=== PATIENT | male | born 1955 | race Caucasian/White ===

== ENCOUNTER → 2018-01-10 14:27 | Outpatient (CLI) | payer BC, SELFPAY ==
[2018-01-10 15:23] LABS: Alanine Aminotransferase 27 IU/L (21-72); Albumin 4.7 g/dL (3.5-5.0); Albumin Globulin Ratio 1.4 (1.0-2.8); Alkaline Phosphatase 72 U/L (38-126); Aspartate Aminotransferase 30 IU/L (17-59); Bilirubin Total 0.4 mg/dL (0.2-1.3); Blood Urea Nitrogen 12 mg/dL (9-20); Calcium 9.5 mg/dL (8.4-10.2); Carbon Dioxide 26 mmol/L (22-32); Chloride 107 mmol/L (98-107); Cholesterol 166 mg/dL (140-199); Estimated Glomerular Filt Rate > 60.0 mL/min (>60); Globulin 3.3 g/dL (1.7-4.1); Glucose 117 mg/dL (80-110); HDL Cholesterol 44 mg/dL (40-60); HEMOLYSIS < 15 (0-50); LDL Cholesterol Calculated 82 mg/dL (<100); Potassium 4.2 mmol/L (3.4-5.1); Sodium 146 mmol/L (137-145); Triglycerides 199 mg/dL (35-150); Uric Acid 7.7 mg/dL (3.5-8.5)
[2018-01-10 15:35] LABS: Vitamin D 25 Hydroxy (D3) 16.8 ng/mL (30.0-100.0)
== END ==
PROVIDERS: Family Provider Family Medicine; PCP Family Medicine; Visit Provider Student in an Organized Health Care Education/Training Program
DX: E78.00 Pure hypercholesterolemia, unspecified (principal); I10 Essential (primary) hypertension; M10.9 Gout, unspecified; Z79.899 Other long term (current) drug therapy; E55.9 Vitamin D deficiency, unspecified
CPT/HCPCS: 36415; 80053; 80061; 82306; 84550

== ENCOUNTER → 2019-01-09 09:27 | Outpatient (CLI) | payer BC, SELFPAY ==
[2019-01-09 10:20] LABS: HEMOLYSIS < 15 (0-50)
[2019-01-09 10:26] LABS: BUN Creatinine Ratio 16.7 (6-22); Blood Urea Nitrogen 15 mg/dL (9-20); Calcium 10.1 mg/dL (8.4-10.2); Carbon Dioxide 29 mmol/L (22-32); Chloride 102 mmol/L (98-107); Cholesterol 209 mg/dL (140-199); Estimated Glomerular Filt Rate > 60.0 mL/min (>60); Glucose 140 mg/dL (80-110); HDL Cholesterol 43 mg/dL (40-60); LDL Cholesterol Calculated 109 mg/dL (<100); Potassium 4.2 mmol/L (3.4-5.1); Sodium 142 mmol/L (137-145); Triglycerides 284 mg/dL (35-150); Uric Acid 7.8 mg/dL (3.5-8.5)
[2019-01-09 10:34] LABS: Vitamin D 25 Hydroxy (D3) 41.7 ng/mL (30.0-100.0)
[2019-01-09 14:09] LABS: Prostate Specific Antigen Scrn 3.98 ng/mL (0.1-4.0)
== END ==
PROVIDERS: PCP Student in an Organized Health Care Education/Training Program; Visit Provider Student in an Organized Health Care Education/Training Program
DX: Z12.5 Encounter for screening for malignant neoplasm of prostate (principal); Z71.1 Person with feared health complaint in whom no diagnosis is made; M10.9 Gout, unspecified; E55.9 Vitamin D deficiency, unspecified; I10 Essential (primary) hypertension; E78.00 Pure hypercholesterolemia, unspecified
CPT/HCPCS: 36415; 80048; 80061; 82306; 84550; 86900; 86901; G0103

== ENCOUNTER → 2019-07-31 08:19 | Outpatient (CLI) | payer BC, SELFPAY ==
--- NOTE | 2019-07-31 08:20 | DI.MG.S_ITS ---
MALE BILATERAL DIGITAL DIAGNOSTIC MAMMOGRAM 3D/2D: 07/31/2019 CLINICAL: Left breast pain. No prior exams were available for comparison. There is a flame-shaped irregular low density asymmetry with indistinct margins in the left breast central to the nipple anterior depth. This correlates to the area of reported pain. No other significant masses, calcifications, or other findings are seen in either breast. IMPRESSION: There is no mammographic evidence of malignancy. Flame shaped retroareolar asymmetry is consistent with gynecomastia. Recommend clinical follow-up for possible etiologies and to demonstrate resolution of clinical symptoms. This exam was interpreted at Station ID: [id number]. NOTE: For mammograms, a report in lay terms will be sent to the patient. Approximately 15% of breast malignancies will not be visualized mammographically. In the management of a palpable breast mass, a negative mammogram must not discourage biopsy of a clinically suspicious lesion. Electronically Signed By: Ramakrishna Sy M.D. ddjenise/:07/31/2019 08:58:03 letter sent: Clinical Evaluation ACR BI-RADS Category 2: Benign Finding(s) 3342F
== END ==
PROVIDERS: PCP Student in an Organized Health Care Education/Training Program; Referring Provider Student in an Organized Health Care Education/Training Program; Visit Provider Student in an Organized Health Care Education/Training Program
DX: N64.4 Mastodynia (principal); N62 Hypertrophy of breast
CPT/HCPCS: 77066; G0279

== ENCOUNTER → 2019-08-07 08:34 | Outpatient (CLI) | payer BC, SELFPAY ==
[2019-08-07 10:01] LABS: HCG Quantitative /Beta subunit < 2.4 mIU/mL (-2.40)
[2019-08-07 10:17] LABS: Testosterone 123 ng/dL (71.8-623)
[2019-08-07 10:34] LABS: Estradiol, Total 25.1 pg/mL
== END ==
PROVIDERS: PCP Student in an Organized Health Care Education/Training Program; Referring Provider Student in an Organized Health Care Education/Training Program; Visit Provider Student in an Organized Health Care Education/Training Program
DX: N64.4 Mastodynia (principal)
CPT/HCPCS: 36415; 82670; 83001; 83002; 84403; 84702

== ENCOUNTER → 2019-12-03 07:01 | Outpatient (CLI) | payer BC, SELFPAY ==
[2019-12-03 10:13] LABS: Testosterone 80.9 ng/dL (71.8-623)
== END ==
PROVIDERS: PCP Student in an Organized Health Care Education/Training Program; Referring Provider Student in an Organized Health Care Education/Training Program; Visit Provider Student in an Organized Health Care Education/Training Program
DX: E29.1 Testicular hypofunction (principal)
CPT/HCPCS: 36415; 84403

== ENCOUNTER → 2020-02-02 06:55 | Outpatient (CLI) | payer BC, SELFPAY ==
[2020-02-02 08:28] LABS: Hematocrit 41.5 % (41-53); Hemoglobin 14.1 g/dL (13.5-17.5)
[2020-02-02 08:52] LABS: Prostate Specific Antigen Scrn 4.73 ng/mL (0.1-4.0)
[2020-02-02 08:54] LABS: Testosterone 117 ng/dL (71.8-623)
== END ==
PROVIDERS: PCP Student in an Organized Health Care Education/Training Program; Referring Provider Student in an Organized Health Care Education/Training Program; Visit Provider Student in an Organized Health Care Education/Training Program
DX: E29.1 Testicular hypofunction (principal); Z12.5 Encounter for screening for malignant neoplasm of prostate; Z79.899 Other long term (current) drug therapy
CPT/HCPCS: 36415; 84403; 85014; 85018; G0103

== ENCOUNTER → 2020-03-16 06:50 | Outpatient (CLI) | payer BC, SELFPAY ==
[2020-03-16 08:39] LABS: Prostate Specific Antigen 4.95 ng/mL (0.10-4.00)
== END ==
PROVIDERS: PCP Student in an Organized Health Care Education/Training Program; Referring Provider Student in an Organized Health Care Education/Training Program; Visit Provider Student in an Organized Health Care Education/Training Program
DX: R97.20 Elevated prostate specific antigen [PSA] (principal)
CPT/HCPCS: 36415; 84153

== ENCOUNTER → 2020-05-27 12:18 | Outpatient (CLI) | payer BC, SELFPAY ==
[2020-05-27] MEDS: COVID-19 VACC #1, MRNA(MOD) 100 MCG/0.5 ML VIAL IM (12:26)
== END ==
PROVIDERS: PCP Student in an Organized Health Care Education/Training Program; Visit Provider Internal Medicine
DX: Z23 Encounter for immunization (principal)
CPT/HCPCS: 0011A; 91301

== ENCOUNTER → 2020-06-24 12:14 | Outpatient (CLI) | payer BC, SELFPAY ==
[2020-06-24] MEDS: COVID-19 VACC #2, MRNA(MOD) 100 MCG/0.5 ML VIAL IM (12:25)
== END ==
PROVIDERS: PCP Student in an Organized Health Care Education/Training Program; Visit Provider Internal Medicine
DX: Z23 Encounter for immunization (principal)
CPT/HCPCS: 0012A; 91301

== ENCOUNTER 2020-06-29 18:19 | Emergency (ER) | payer BC, SELFPAY ==
[2020-06-29 18:28] VITALS: BP 221/110; PULSE 117; RESP 16; TEMP 36.4; O2SAT 96; BMI 34.9
--- NOTE | 2020-06-29 18:31 | DI.RAD.S_ITS ---
PROCEDURE: XR ANKLE RT MIN 3V INDICATIONS: missed last two steps on ladder right ankle pain TECHNIQUE: 3 views of the ankle were acquired. COMPARISON: None. FINDINGS: Bones: No definite fracture. Large posterior calcaneal spur. Diffuse hindfoot spurring and sclerosis. Soft tissues: Severe circumferential ankle edema IMPRESSION: No fracture identified. If the patient's pain or other symptoms persist, consider further evaluation with MRI. Severe circumferential soft tissue swelling. Dictated by: Anshul Johnson M.D. on 06/29/2020 at 19:29 Approved by: Anshul Johnson M.D. on 06/29/2020 at 19:30
--- NOTE | 2020-06-29 20:11 | ED_ITS ---
HPI - Extremity Injury (Lower) General Chief Complaint: Extremity Injury, Lower Stated Complaint: right side lower leg injury, thinks broken Time Seen by Provider: 06/29/20 19:58 Source: patient and family Mode of arrival: Ambulatory History of Present Illness HPI Narrative: Patient here with . drove. Complains of right ankle injury at 5:00 p.m. today. Missed the last step going down on his ladder. Complains only of the right ankle. No other injury. No previous injury or surgery to this ankle. No numbness tingling or weakness. Did have 1 alcohol beverage today at noon. Blood pressure noted. No history of hypertension. However patient states he gets very anxious nervous seeing doctors or medical office. Denies any chest pain headache numbness tingling or weakness. Related Data Home Medications Medication Instructions Recorded Confirmed cholecalciferol (vitamin D3) 250 500 mcg PO DAILY cap 05/16/20 06/29/20 mcg (10,000 unit) capsule fluticasone 100 mcg-salmeterol 50 1 inh INHALATION BID 05/16/20 06/29/20 mcg/dose blistr powdr for inhalation melatonin 5 mg capsule mg PO 05/16/20 06/29/20 Previous Rx's Medication Instructions Recorded albuterol sulfate 90 mcg/actuation 1 puff INHALATION BID PRN #8.5 gram 11/11/19 aerosol inhaler atorvastatin 20 mg tablet 20 mg PO BEDTIME #90 tab 01/06/20 safety needles 18 gauge x 1 #6 each 01/15/20 syringe with needle, safety 3 mL #6 each 01/15/20 22 gauge x 1 1/2 testosterone cypionate 100 mg/mL 100 mg IM Q3W #1 ml 01/15/20 intramuscular oil colchicine 0.6 mg tablet 0.6 mg PO DAILY PRN #7 tab 02/12/20 Allergies Allergy/AdvReac Type Severity Reaction Status Date / Time No Known Drug Allergies Allergy Verified 06/29/20 18:30 Review of Systems Review of Systems Narrative: GENERAL: Denies chills, fatigue, malaise, fever, sweats. HEENT: Denies sinus pain, ear pain, sore throat RESPIRATORY: Denies dyspnea, cough CARDIOVASCULAR: Denies chest pain, palpitations GASTROINTESTINAL: Denies nausea, vomiting, abdominal pain : Denies dysuria, frequency, hematuria MUSCULOSKELETAL: Complains muscle or bony pain SKIN: Denies rash, skin lesions NEUROLOGIC: Denies weakness, numbness ROS Unobtainable: All systems reviewed & are unremarkable except as noted in HPI and below Patient History Medical History Ankle pain (2009) Asthma Breast pain in male Chicken pox (1961) Diverticular disease Foot pain (2012) Hayfever (1961) Nodular prostate [place] fever (1977) Shoulder pain (1998) Surgical History Anesthesia History of circumcision History of umbilical hernia repair (1994) Family History Brother No problems noted. Brother Heart attack Heart disease CAD (coronary artery disease) Brother Gout Brother Down's syndrome Father No problems noted. Mother Heart disease Diabetes mellitus Grandmother Heart attack Pancreatitis Sister No problems noted. Grandmother Pancreatic cancer Social History marital status: occupational status: employed Smoking Status: Never smoker alcohol intake: current (1 beer/month) substance use type: does not use caffeine: Yes Smoking Status: Never smoker alcohol intake frequency: holidays/special occasions only Substance Use Type: does not use Exam Narrative Exam Narrative: GENERAL: in no distress, not toxic not dyspneic HEAD: Normocephalic. EYES: Pupils equal round CARDIOVASCULAR: Regular rate and rhythm without murmurs RESPIRATORY: Clear to auscultation. Breath sounds equal bilaterally. No wheezes, rales, or rhonchi. EXTREMITIES: Examination right lower extremity ankle and foot exposed. Foot is warm soft and pink with diffuse circumferential edema of the ankle. Strong pedal pulse. Light touch intact to foot and toes. Wiggles toes. Nontender kne e and hip. Limited range of motion at the ankle due to pain and swelling. NEURO: AOx4. SKIN: Warm and dry PSYCH: Not anxious, is cooperative Initial Vital Signs Initial Vital Signs: Vital Signs Temperature 97.5 F L 06/29/20 18:28 Pulse Rate 117 H 06/29/20 18:28 Respiratory Rate 16 06/29/20 18:28 Blood Pressure 221/110 H 06/29/20 18:28 Pulse Oximetry 96 06/29/20 18:28 Procedures Orthopedic Splinting/Casting Injury #1: Side: right Lower Extremity Injury Location: ankle Lower Extremity Immobilizer: AirCast Other Orthopedic Equipment: crutches Post splinting neuro exam: intact Post splinting vascular exam: intact Placed by: Nursing Additional Comments: Patient tolerated splinting very well. Neurovascular intact. Course Course Course Narrative: No new issues during course of stay. Orders Ordered: ED Orders 06/29/20 18:31 XR ankle RT min 3V Stat Reevaluation(s) Reevaluation #1: Patient agrees with treatment plan and follow-up with orthopedics for the ankle injury as well as family doctor for his blood pressure He states this is due to anxiety. Time: 20:18 Vital Signs Vital signs: Vital Signs - 8 hr 06/29/20 18:28 Temperature 97.5 F L Pulse Rate 117 H Respiratory Rate 16 Blood Pressure 221/110 H Pulse Oximetry 96 MDM - Extremity Injury (Lower) Differential Diagnosis Differential diagnosis: Likely ankle sprain and strain and ankle fracture Imaging Data Extremity x-ray #1: Radiologist's Impression: [address] [id number] ReportSigned Patient: Artis Davis BMR#: [id number]: [id number]:[id number]/Sex: 64 / MDate of Service: 06/29/20Loc: EDAccession Number: [id number] Procedure: XR ankle RT min 3V Ordering Provider: Artis Valenzuela MD PROCEDURE: XR ANKLE RT MIN 3V INDICATIONS: missed last two steps on ladder right ankle pain TECHNIQUE: 3 views of the ankle were acquired. COMPARISON: None. FINDINGS: Bones: No definite fracture. Large posterior calcaneal spur. Diffuse hindfoot spurring and sclerosis. Soft tissues: Severe circumferential ankle edema IMPRESSION: No fracture identified. If the patient's pain or other symptoms persist, consider further evaluation with MRI. Severe circumferential soft tissue swelling. Dictated by: Anshul Johnson M.D. on 06/29/2020 at 19:29 Approved by: Anshul Johnson M.D. on 06/29/2020 at 19:30 [facility] Narrative Medical decision making narrative: Appropriate for discharge home. Instructions given to patient. Also for blood pressure remeasured with family doctor. He does have a family doctor. He does not have a history of high blood pressure. He states this is due to pain and anxiety. Return precautions given. May need MRI or repeat x-ray if not improving 7 or 10 days of the right ankle pain and swelling. He understands no driving as well. Discharge Plan Departure Patient Disposition: Home Clinical Impression: Sprain of ankle, right Qualifiers: Encounter type: initial encounter Involved ligament of ankle: unspecified ligament Qualified Code(s): S93.401A - Sprain of unspecified ligament of right ankle, initial encounter Instructions: DI for Ankle Sprain Activity Restrictions/Additional Instructions: No driving or operating machinery until cleared by Orthopedics. Use crutches and ankle splint until office time. May use [id number]-[id number] ibuprofen for pain. Ice and elevate ankle 20 minutes at a time as needed for pain and swellin g. Return if worse if any questions or concerns. Prescriptions: No Action albuterol sulfate [Ventolin HFA] 90 mcg/actuation HFA aerosol inhaler 1 puff INHALATION BID PRN (Reason: shortness of breath or wheezing) Qty: 8.5 RF: 5 atorvastatin 20 mg tablet 20 mg PO BEDTIME Qty: 90 RF: 2 colchicine 0.6 mg tablet 0.6 mg PO DAILY PRN (Reason: gout) Qty: 7 RF: 5 fluticasone propion-salmeterol [Wixela Inhub] 100-50 mcg/dose blister with de vice 1 inh inhalation BID RF: 0 cholecalciferol (vitamin D3) 250 mcg (10,000 unit) capsule 500 mcg PO DAILY RF: 0 melatonin 5 mg capsule PO RF: 0 (DME) Monoject Safety Syringes 3 mL 22 gauge x 1 1/2 syringe See Rx Instructions .ROUTE .MEDSUPPLY Qty: 6 RF: 11 (DME) safety needles 18 gauge x 1 needle See Rx Instructions .ROUTE .MEDSUPPLY Qty: 6 RF: 11 testosterone cypionate [Depo-Testosterone] 100 mg/mL oil 100 mg IM Q3W Qty: 1 RF: 5 Hold Instructions: Needs f/u labs after 11/06/19 Referrals: Chris Garcia MD [Primary Care Provider] - Ankit Potter MD [Physician] -
[2020-06-29] MEDS: HYDROCODONE/ACET 5/325 TABLET 2 TAB PO (20:16)
[2020-06-29] MEDS: ONDANSETRON 4 MG ODT SL (20:16)
[2020-06-29 20:20] VITALS: BP 196/96; RESP 12
[2020-06-29 20:54] VITALS: BP 172/88; PULSE 93; RESP 20; O2SAT 99
== END 2020-06-29 20:54 | disposition home or self-care (01) ==
PROVIDERS: Emergency Provider Emergency Medicine; PCP Student in an Organized Health Care Education/Training Program
DX: S93.401A Sprain of unspecified ligament of right ankle, initial encounter (principal); X58.XXXA Exposure to other specified factors, initial encounter
CPT/HCPCS: 73610; 99283; 99284

== ENCOUNTER 2020-08-18 06:23 | Emergency (ER) | payer BC, SELFPAY ==
[2020-08-18] VITALS (15 sets, daily range): BP systolic 129–221; BP diastolic 58–117; PULSE 76–102; RESP 15–38; TEMP 37.5; O2SAT 92–97
--- NOTE | 2020-08-18 06:48 | ED.GENADULT ---
HPI - General Adult <Halima Chatterjee MD - Last Filed: 08/19/20 05:20> General Chief complaint: Neuro Symptoms/Deficit Stated complaint: POSSIBLE STROKE Time Seen by Provider: 08/18/20 06:38 History of Present Illness HPI narrative: S 64-year-old gentleman with a history of asthma, hyperlipidemia slightly elevated blood pressure and he has been recently monitoring blood pressures to decide if medications are going to be required presents with 4 days of labile blood pressure with numbers as elevated as 220/120 with mild tachycardia, typically in the 90s sinus rhythm (he notes his usual is the low 80s) he has been having dizziness and vertigo when the blood pressures are elevated and worse when he is standing up. The dizziness isn't quite as pronounced when he is laying down. He does not describe chest pain or exertional dyspnea. His notes that he has been a bit cognitively fuzzy over the last 4 days but no obvious dysarthria or word-finding difficulties. He has a right boot in place after suffering a heel fracture at the end of June. He does not note calf tenderness or swelling of the right side Related Data Home Medications Medication Instructions Recorded Confirmed cholecalciferol (vitamin D3) 250 500 mcg PO DAILY cap 05/16/20 06/29/20 mcg (10,000 unit) capsule fluticasone 100 mcg-salmeterol 50 1 inh INHALATION BID 05/16/20 06/29/20 mcg/dose blistr powdr for inhalation melatonin 5 mg capsule mg PO 05/16/20 06/29/20 Previous Rx's Medication Instructions Recorded albuterol sulfate 90 mcg/actuation 1 puff INHALATION BID PRN #8.5 gram 11/11/19 aerosol inhaler atorvastatin 20 mg tablet 20 mg PO BEDTIME #90 tab 01/06/20 colchicine 0.6 mg tablet 0.6 mg PO DAILY PRN #7 tab 02/12/20 meclizine 25 mg PO TID PRN #10 tab 08/18/20 Allergies Allergy/AdvReac Type Severity Reaction Status Date / Time No Known Drug Allergies Allergy Verified 06/29/20 18:30 Review of Systems <Halima Chatterjee MD - Last Filed: 08/19/20 05:20> Review of Systems Narrative: Remainder of complete review of systems is otherwise unremarkable except for that included in the HPI. Patient History <Halima Chatterjee MD - Last Filed: 08/19/20 05:20> Medical History Ankle pain (2009) Asthma Breast pain in male Chicken pox (1961) Diverticular disease Foot pain (2012) Hayfever (1961) Nodular prostate [place] fever (1977) Shoulder pain (1998) Surgical History Anesthesia History of circumcision History of umbilical hernia repair (1994) Family History Brother No problems noted. Brother Heart attack Heart disease CAD (coronary artery disease) Brother Gout Brother Down's syndrome Father No problems noted. Mother Heart disease Diabetes mellitus Grandmother Heart attack Pancreatitis Sister No problems noted. Grandmother Pancreatic cancer Social History marital status: occupational status: employed Smoking Status: Never smoker alcohol intake: current (1 beer/month) substance use type: does not use caffeine: Yes Smoking Status: Never smoker alcohol intake frequency: holidays/special occasions only Substance Use Type: does not use Exam <Halima Chatterjee MD - Last Filed: 08/19/20 05:20> Narrative Exam Narrative: General: Healthy appearing, in no acute distress. Able to give a complete and coherent history. Well-nourished well-developed HEENT: Moist mucous membranes, normal sclera with reactive pupils, Neck: No JVD, supple Respiratory: Lungs are clear to auscultation, no wheezing no rales no rhonchi. Full and symmetrical air movement Cardiac: Regular rate and rhythm. 3/6 murmur heard best at the apex radiating up to the precordium. Abdomen: Soft, nontender, good bowel tones, no flank pain Skin: Warm and dry, no rashes Neurologic: Grossly neurologically intact with no obvious asymmetries or abnormalities Extremities: No trauma, well perfused Psych: Cooperative, appropriate insight and affect Initial Vital Signs Initial Vital Signs: Vital Signs Pulse Rate 97 H 08/18/20 06:41 Respiratory Rate 33 H 08/18/20 06:41 Pulse Oximetry 94 08/18/20 06:41 <Angie Beltrán DO - Last Filed: 08/18/20 19:10> Initial Vital Signs Initial Vital Signs: Vital Signs Pulse Rate 97 H 08/18/20 06:41 Respiratory Rate 33 H 08/18/20 06:41 Pulse Oximetry 94 08/18/20 06:41 <Angie Beltrán DO - Last Filed: 08/18/20 19:10> NIH Stroke Scale Level of Conciousness: Alert, keenly responsive Ask month/age: Answers both questions correctly. Open/close eyes, close hand: Performs both tasks correctly Best gaze horizontal: Normal Visual hubbard: No visual loss Facial palsy: Normal symetrical movement Left arm drift: No drift for full 10 sec Right arm drift: No drift for full 10 sec Left leg drift: No drift for full 5 sec Right leg drift: No drift for full 5 sec Limb ataxia: Absent Sensory on face/arms/legs: Normal, no sensory loss Best language: No aphasia, normal Dysarthria: Normal Extinction or inattention: No abnormality Total NIH Stroke scale score: 0 Course <Halima Chatterjee MD - Last Filed: 08/19/20 05:20> Orders Ordered: Discontinued Medications Labetalol HCl (Labetalol 20 Mg/4 Ml Syringe) 20 mg IV NOW ONE Stop: 08/18/20 07:05 Last Admin: 08/18/20 07:22 Dose: 20 mg Documented by: MARIO Meclizine HCl (Meclizine Hcl 12.5 Mg Tablet) 25 mg PO NOW ONE Stop: 08/18/20 08:29 Last Admin: 08/18/20 08:46 Dose: 25 mg Documented by: TACO Vital Signs Vital signs: Vital Signs - 8 hr 08/18/20 06:50 Temperature 99.5 F Pulse Rate 102 H Respiratory Rate 18 Blood Pressure 221/117 H Pulse Oximetry 97 <Angie Beltrán DO - Last Filed: 08/18/20 19:10> Orders Ordered: Discontinued Medications Labetalol HCl (Labetalol 20 Mg/4 Ml Syringe) 20 mg IV NOW ONE Stop: 08/18/20 07:05 Last Admin: 08/18/20 07:22 Dose: 20 mg Documented by: MARIO Meclizine HCl (Meclizine Hcl 12.5 Mg Tablet) 25 mg PO NOW ONE Stop: 08/18/20 08:29 Last Admin: 08/18/20 08:46 Dose: 25 mg Documented by: TACO Vital Signs Vital signs: Vital Signs - 8 hr 08/18/20 06:50 Temperature 99.5 F Pulse Rate 102 H Respiratory Rate 18 Blood Pressure 221/117 H Pulse Oximetry 97 Medical Decision Making <Halima Chatterjee MD - Last Filed: 08/19/20 05:20> Medical Records Medical records reviewed: Yes I reviewed the patient's medical records. Lab Data Lab results reviewed: Yes I reviewed the patient's lab results. Result diagrams: 08/18/20 06:45 08/18/20 06:45 Labs: Lab Results 08/18/20 08/18/20 08/18/20 Range/Units 06:45 06:45 07:00 WBC 10.8 (4.5-11.0) X10^3/uL RBC 4.56 (4.5-5.9) X10^6/uL Hgb 13.9 (13.5-17.5) g/dL Hct 41.0 (41-53) % MCV 89.8 (80-100) fL MCH 30.5 (26-34) PG MCHC 33.9 (30-36) % RDW 12.9 (11.6-14.8) % Plt Count 312 (150-400) X10^3/uL Neut % (Auto) 67.0 (50-75) % Lymph % (Auto) 19.0 L (25-40) % [place] % (Auto) 8.1 (3-14) % Eos % (Auto) 4.8 H (2-4) % Baso % (Auto) 1.1 (0-2) % Neut # (Auto) 7200 H (0743-3778) /uL Lymph # (Auto) 2000 (5766-8833) /uL [place] # (Auto) 900 (0-900) /uL Eos # (Auto) 500 H (0-450) /uL Baso # (Auto) 100 (0-100) /uL D-Dimer 281 H (<230) ng/mL Sodium 142 (137-145) mmol/L Potassium 3.6 (3.4-5.1) mmol/L Chloride 107 (98-107) mmol/L Carbon Dioxide 26 (22-32) mmol/L BUN 14 (9-20) mg/dL Creatinine 0.76 (0.66-1.25) mg/dL Estimated GFR > 60.0 (>60) mL/min BUN/Creatinine Ratio 18.4 (6-22) Glucose 137 H (80-110) mg/dL Calcium 9.9 (8.4-10.2) mg/dL Magnesium 1.8 (1.6-2.3) mg/dL Total Bilirubin 0.7 (0.2-1.3) mg/dL AST 30 (17-59) IU/L ALT 22 (<50) IU/L Alkaline Phosphatase 75 (38-126) U/L Troponin I < 0.012 (0.01-0.034) ng/mL Total Protein 7.9 (6.3-8.2) g/dL Albumin 4.3 (3.5-5.0) g/dL Globulin 3.6 (1.7-4.1) g/dL Albumin/Globulin Ratio 1.2 (1.0-2.8) <Angie Beltrán, - Last Filed: 08/18/20 19:10> Lab Data Lab results reviewed: Yes I reviewed the patient's lab results. Labs: Lab Results 08/18/20 08/18/20 08/18/20 Range/Units 06:45 06:45 07:00 WBC 10.8 (4.5-11.0) X10^3/uL RBC 4.56 (4.5-5.9) X10^6/uL Hgb 13.9 (13.5-17.5) g/dL Hct 41.0 (41-53) % MCV 89.8 (80-100) fL MCH 30.5 (26-34) PG MCHC 33.9 (30-36) % RDW 12.9 (11.6-14.8) % Plt Count 312 (150-400) X10^3/uL Neut % (Auto) 67.0 (50-75) % Lymph % (Auto) 19.0 L (25-40) % [place] % (Auto) 8.1 (3-14) % Eos % (Auto) 4.8 H (2-4) % Baso % (Auto) 1.1 (0-2) % Neut # (Auto) 7200 H (9035-1753) /uL Lymph # (Auto) 2000 (9092-6063) /uL [place] # (Auto) 900 (0-900) /uL Eos # (Auto) 500 H (0-450) /uL Baso # (Auto) 100 (0-100) /uL D-Dimer 281 H (<230) ng/mL Sodium 142 (137-145) mmol/L Potassium 3.6 (3.4-5.1) mmol/L Chloride 107 (98-107) mmol/L Carbon Dioxide 26 (22-32) mmol/L BUN 14 (9-20) mg/dL Creatinine 0.76 (0.66-1.25) mg/dL Estimated GFR > 60.0 (>60) mL/min BUN/Creatinine Ratio 18.4 (6-22) Glucose 137 H (80-110) mg/dL Calcium 9.9 (8.4-10.2) mg/dL Magnesium 1.8 (1.6-2.3) mg/dL Total Bilirubin 0.7 (0.2-1.3) mg/dL AST 30 (17-59) IU/L ALT 22 (<50) IU/L Alkaline Phosphatase 75 (38-126) U/L Troponin I < 0.012 (0.01-0.034) ng/mL Total Protein 7.9 (6.3-8.2) g/dL Albumin 4.3 (3.5-5.0) g/dL Globulin 3.6 (1.7-4.1) g/dL Albumin/Globulin Ratio 1.2 (1.0-2.8) Imaging Data CT scan - head: Radiologist's Impression: PROCEDURE: CT HEAD/BRAIN WO CON INDICATIONS: dizziness hypertensive emergencies TECHNIQUE: Noncontrast 4.5 mm thick angled axial sections acquired from the foramen magnum to the vertex, with coronal and sagittal reformats. For radiation dose reduction, the following was used: automated exposure control, adjustment of mA and/or kV according to patient size. COMPARISON: None. FINDINGS: Image quality: Excellent. CSF spaces: Basal cisterns are patent. No extra-axial fluid collections. Ventricles are normal in size and shape. Brain: No midline shift. No intracranial masses or hemorrhage. [place]-white matter interface is normal. Skull and face: Calvarium and visualized facial bones are intact, without suspicious lesions. Sinuses: Mild scattered mucosal thickening noted in the maxillary sinuses in the ethmoid air cells. The mastoids are clear. IMPRESSION: No acute intracranial disease process. Dictated by: Linda Marti MD, PhD on 08/18/2020 at 7:35 Chest x-ray: Radiologist's Impression: PROCEDURE: XR CHEST 1V INDICATIONS: hypertension TECHNIQUE: One view of the chest was acquired. COMPARISON: None. FINDINGS: Surgical changes and devices: None. Lungs and pleura: Lungs are clear. No pleural effusions or pneumothorax. Mediastinum: Mediastinal contours appear normal. Heart size is normal. Bones and chest wall: No suspicious bony lesions. Overlying soft tissues appear unremarkable. IMPRESSION: No acute pulmonary process. Dictated by: Veronica Zamora M.D. on 08/18/2020 at 8:37 Approved by: Veronica Zamora M.D. on 08/18/2020 at 8:37 ECG Data Attestation: I personally reviewed and interpreted this ECG as follows: Interpretation: Normal sinus rhythm rate 85 p.r. interval 170 QRS [address] changes or T-wave inversions MDM Narrative Medical decision making narrative: Patient is having dizziness that is definitely worse with position better with rest which is consistent with vertigo. Blood pressure is noted to be initially quite hypertensive he was given labetalol which did lower it however blood pressure slowly creep back up. He does not appear to have any encephalopathy there is no sign of end-organ damage. He said that he has had some blood pressure issues and has been resistant to take blood pressure medication but now it might be willing to do so. He was given meclizine in the emergency department and now is overall feeling better. He is ambulatory in the ED without any worsening dizziness. Discharge Plan Departure Patient Disposition: Home Clinical Impression: Vertigo, HTN (hypertension) Instructions: Essential Hypertension, DI for Vertigo Activity Restrictions/Additional Instructions: *You have been diagnosed with Vertigo, hypertension *What to do: Please follow up with your primary about your blood pressure *Continue to take medications as directed Meclizine 25 mg every 8 hours if needed for dizziness *Follow up with your primary care provider in 2-3 days *Return to ER if you should have increasing dizziness numbness tingling weakness visual changes or any new, worsening or concerning symptoms Prescriptions: New meclizine 25 mg tablet 25 mg PO TID PRN (Reason: dizziness) Qty: 10 RF: 0 No Action albuterol sulfate [Ventolin HFA] 90 mcg/actuation HFA aerosol inhaler 1 puff INHALATION BID PRN (Reason: shortness of breath or wheezing) Qty: 8.5 RF: 5 atorvastatin 20 mg tablet 20 mg PO BEDTIME Qty: 90 RF: 2 colchicine 0.6 mg tablet 0.6 mg PO DAILY PRN (Reason: gout) Qty: 7 RF: 5 fluticasone propion-salmeterol [Wixela Inhub] 100-50 mcg/dose blister with device 1 inh inhalation BID RF: 0 cholecalciferol (vitamin D3) 250 mcg (10,000 unit) capsule 500 mcg PO DAILY RF: 0 melatonin 5 mg capsule PO RF: 0 Referrals: Chris Garcia MD [Primary Care Provider] -
--- NOTE | 2020-08-18 06:53 | DI.RAD.S_ITS ---
PROCEDURE: XR CHEST 1V INDICATIONS: hypertension TECHNIQUE: One view of the chest was acquired. COMPARISON: None. FINDINGS: Surgical changes and devices: None. Lungs and pleura: Lungs are clear. No pleural effusions or pneumothorax. Mediastinum: Mediastinal contours appear normal. Heart size is normal. Bones and chest wall: No suspicious bony lesions. Overlying soft tissues appear unremarkable. IMPRESSION: No acute pulmonary process. Dictated by: Veronica Zamora M.D. on 08/18/2020 at 8:37 Approved by: Veronica Zamora M.D. on 08/18/2020 at 8:37
--- NOTE | 2020-08-18 07:02 | DI.CT.S_ITS ---
PROCEDURE: CT HEAD/BRAIN WO CON INDICATIONS: dizziness hypertensive emergencies TECHNIQUE: Noncontrast 4.5 mm thick angled axial sections acquired from the foramen magnum to the vertex, with coronal and sagittal reformats. For radiation dose reduction, the following was used: automated exposure control, adjustment of mA and/or kV according to patient size. COMPARISON: None. FINDINGS: Image quality: Excellent. CSF spaces: Basal cisterns are patent. No extra-axial fluid collections. Ventricles are normal in size and shape. Brain: No midline shift. No intracranial masses or hemorrhage. Blackmon-white matter interface is normal. Skull and face: Calvarium and visualized facial bones are intact, without suspicious lesions. Sinuses: Mild scattered mucosal thickening noted in the maxillary sinuses in the ethmoid air cells. The mastoids are clear. IMPRESSION: No acute intracranial disease process. Dictated by: Linda Marti MD, PhD on 08/18/2020 at 7:35 Approved by: Linda Marti MD, PhD on 08/18/2020 at 7:37
[2020-08-18 07:10] LABS: Alanine Aminotransferase 22 IU/L (<50); Albumin 4.3 g/dL (3.5-5.0); Albumin Globulin Ratio 1.2 (1.0-2.8); Alkaline Phosphatase 75 U/L (38-126); Aspartate Aminotransferase 30 IU/L (17-59); BUN Creatinine Ratio 18.4 (6-22); Bilirubin Total 0.7 mg/dL (0.2-1.3); Blood Urea Nitrogen 14 mg/dL (9-20); Calcium 9.9 mg/dL (8.4-10.2); Carbon Dioxide 26 mmol/L (22-32); Chloride 107 mmol/L (98-107); Estimated Glomerular Filt Rate > 60.0 mL/min (>60); Globulin 3.6 g/dL (1.7-4.1); Glucose 137 mg/dL (80-110); HEMOLYSIS < 15 (0-50); Magnesium 1.8 mg/dL (1.6-2.3); Potassium 3.6 mmol/L (3.4-5.1); Sodium 142 mmol/L (137-145); Total Protein 7.9 g/dL (6.3-8.2)
[2020-08-18 07:21] LABS: Add Manual Diff / Slide Review NO; Basophils Absolute Auto 100 /uL (0-100); Basophils Percent Auto 1.1 % (0-2); Eosinophils Absolute Auto 500 /uL (0-450); Eosinophils Percent Auto 4.8 % (2-4); Hemoglobin 13.9 g/dL (13.5-17.5); Lymphocytes Absolute Auto 2000 /uL (1100-4500); Mean Corpuscular HGB Conc 33.9 % (30-36); Mean Corpuscular Hemoglobin 30.5 PG (26-34); Mean Corpuscular Volume 89.8 fL (80-100); Monocytes Absolute Auto 900 /uL (0-900); Monocytes Percent Auto 8.1 % (3-14); Neutrophils Absolute Auto 7200 /uL (1500-7000); Platelet Count 312 X10^3/uL (150-400); Red Blood Cell Count 4.56 X10^6/uL (4.5-5.9); Red Cell Distribution Width 12.9 % (11.6-14.8); Troponin I < 0.012 ng/mL (0.01-0.034); White Blood Cell Count 10.8 X10^3/uL (4.5-11.0)
[2020-08-18] MEDS: LABETALOL 20 MG/4 ML SYRINGE IV (07:22)
[2020-08-18 07:24] LABS: D Dimer 281 ng/mL (<230)
[2020-08-18] MEDS: MECLIZINE HCL 12.5 MG TABLET 25 MG PO (08:46)
== END 2020-08-18 10:27 | disposition home or self-care (01) ==
PROVIDERS: Emergency Medicine; Emergency Provider Emergency Medicine; PCP Student in an Organized Health Care Education/Training Program
DX: R42 Dizziness and giddiness (principal); I10 Essential (primary) hypertension
CPT/HCPCS: 36415; 70450; 71045; 80053; 83735; 84484; 85025; 85379; 93005; 93010; 96374; 99284

== ENCOUNTER → 2021-05-01 06:57 | Outpatient (CLI) | payer BC, SELFPAY ==
[2021-05-01 09:17] LABS: BUN Creatinine Ratio 13.3 (6-22); Blood Urea Nitrogen 12 mg/dL (9-20); Estimated Glomerular Filt Rate > 60.0 mL/min (>60)
[2021-05-01 09:43] LABS: Prostate Specific Antigen 4.47 ng/mL (0.10-4.00)
[2021-05-09 10:07] LABS: Testosterone Free 2.26 ng/dL (5.00-21.00)
== END ==
PROVIDERS: PCP Student in an Organized Health Care Education/Training Program; Referring Provider Radiology Radiation Oncology; Visit Provider Radiology Radiation Oncology
DX: C61 Malignant neoplasm of prostate (principal)
CPT/HCPCS: 36415; 82565; 84153; 84402; 84403; 84520

== ENCOUNTER → 2021-05-11 10:00 | Outpatient (CLI) | payer BC, SELFPAY ==
--- NOTE | 2021-05-11 11:31 | DI.CT.S_ITS ---
PROCEDURE: CT ABDOMEN PELVIS W CON INDICATIONS: Malignant neoplasm of prostate TECHNIQUE: After the administration of oral and IV contrast, axial sections were acquired from the lung bases to the pubic symphysis. Coronal and sagittal reformats were performed. For radiation dose reduction, the following was used: automated exposure control, adjustment of mA and/or kV according to patient size. COMPARISON: None. FINDINGS: Image quality: Excellent. Lung bases: Calcified granuloma in the left lower lobe. Left basilar atelectasis. Heart: No significant findings. ABDOMEN: Liver: Hepatic steatosis. Gallbladder: Unremarkable. Biliary ducts: Unremarkable. Pancreas: Unremarkable. Spleen: Unremarkable. Adrenal Glands: Unremarkable. Kidneys and Ureters: Unremarkable. Stomach and Bowel: Trace hiatal hernia. No evidence of intestinal obstruction. Colonic diverticulosis, most prominent in the sigmoid colon. Minimal wall thickening of the sigmoid colon, which may reflect chronic change. The appendix appears normal. Peritoneum: No abnormal intraperitoneal fluid. No free air. Ventral Wall: No hernia. Abdominal Nodes: No retroperitoneal or mesenteric adenopathy by size criteria. Vessels: Aorta and inferior vena cava are normal in size. PELVIS: Pelvic Organs: The prostate measures 3.9 cm in transverse dimension. Bladder: Mild wall thickening, which may reflect under distention. Pelvic Nodes: No enlarged lymph nodes. Miscellaneous: Small fat containing left inguinal hernia. Bones: Mild multifocal degenerative change. 1.1 cm lucent lesion in the right aspect of T10, which likely represents a hemangioma. IMPRESSION: 1. Hepatic steatosis. 2. Minimal thickening of the sigmoid colon, which may reflect chronic change. 3. Mild wall thickening of the urinary bladder, which may be related to under distention. Dictated by: Richard Welch M.D. on 05/11/2021 at 11:51 Approved by: Richard Welch M.D. on 05/11/2021 at 12:00
== END ==
PROVIDERS: PCP Student in an Organized Health Care Education/Training Program; Referring Provider Radiology Radiation Oncology; Visit Provider Radiology Radiation Oncology
DX: C61 Malignant neoplasm of prostate (principal); K76.0 Fatty (change of) liver, not elsewhere classified
CPT/HCPCS: 74177; Q9967

== ENCOUNTER → 2021-05-16 10:20 | Outpatient (CLI) | payer BC, SELFPAY ==
--- NOTE | 2021-05-16 | DI.NM.S_ITS ---
PROCEDURE: NM BONE SCAN WHOLE BODY RADIOPHARMACEUTICAL: 21.8 mCi Tc-99m MDP IV. INDICATIONS: Prostate cancer TECHNIQUE: Delayed whole-body scintigrams were obtained approximately 3-4 hours after intravenous injection of radiotracer. Anterior and posterior views were acquired from vertex to feet. Additional left and right oblique views of the pelvis were obtained. COMPARISON: [facility] [place], CR, XR CALCANEUS RIGHT, 09/01/2020, 11:49. FINDINGS: Increased radiotracer uptake identified in the right hindfoot likely related to the known right calcaneus fracture. Relatively subtle radiotracer uptake identified in the shoulders bilaterally, the sternoclavicular joints bilaterally, the cervical spine in the knees compatible with osteoarthritis. No areas of photopenia identified in the osseous skeleton. No abnormal soft tissue uptake. Activity in the kidneys is normal and symmetric. IMPRESSION: No scintigraphic evidence of osseous metastatic disease. Dictated by: Linda Marti MD, PhD on 05/16/2021 at 16:59 Approved by: Linda Marti MD, PhD on 05/16/2021 at 17:01
== END ==
PROVIDERS: PCP Student in an Organized Health Care Education/Training Program; Referring Provider Radiology Radiation Oncology; Visit Provider Radiology Radiation Oncology
DX: C61 Malignant neoplasm of prostate (principal)
CPT/HCPCS: 78306; A9503

== ENCOUNTER → 2021-09-28 06:45 | Outpatient (CLI) | payer BC, SELFPAY ==
[2021-09-28 10:06] LABS: Prostate Specific Antigen 1.86 ng/mL (0.10-4.00)
== END ==
PROVIDERS: PCP Student in an Organized Health Care Education/Training Program; Referring Provider Radiology Radiation Oncology; Visit Provider Radiology Radiation Oncology
DX: C61 Malignant neoplasm of prostate (principal)
CPT/HCPCS: 36415; 84153

== ENCOUNTER → 2022-01-03 06:49 | Outpatient (CLI) | payer BC, SELFPAY ==
[2022-01-03 09:56] LABS: Prostate Specific Antigen 1.26 ng/mL (0.10-4.00)
== END ==
PROVIDERS: PCP Student in an Organized Health Care Education/Training Program; Referring Provider Radiology Radiation Oncology; Visit Provider Radiology Radiation Oncology
DX: C61 Malignant neoplasm of prostate (principal)
CPT/HCPCS: 36415; 84153

== ENCOUNTER 2022-01-11 09:16 | Observation (INO) | payer BC, SELFPAY ==
[2022-01-11] VITALS (23 sets, daily range): BP systolic 132–185; BP diastolic 72–103; PULSE 77–100; RESP 11–22; TEMP 36.7–37.1; O2SAT 93–97; BMI 33.4
--- NOTE | 2022-01-11 09:26 | DI.RAD.S_ITS ---
PROCEDURE: XR CHEST 1V INDICATIONS: FEELS FUZZY SINCE JUNE TECHNIQUE: One view of the chest was acquired. COMPARISON: [facility], CR, XR CHEST 1V, 08/18/2020, 7:19. FINDINGS: Surgical changes and devices: None. Lungs and pleura: Calcified left lung base granuloma unchanged from prior. Lungs otherwise clear. No pleural effusions or pneumothorax. Mediastinum: Mediastinal contours appear normal. Heart size is normal. Bones and chest wall: No suspicious bony lesions. Overlying soft tissues appear unremarkable. IMPRESSION: No acute finding. Dictated by: Toñito York M.D. on 01/11/2022 at 10:26 Approved by: Toñito York M.D. on 01/11/2022 at 10:33
--- NOTE | 2022-01-11 09:44 | ED_ITS ---
HPI - Dizziness General Chief Complaint: Dizziness Stated Complaint: dizzy, chest pain t-2 Time Seen by Provider: 01/11/22 09:41 Source: patient Mode of arrival: Ambulatory Limitations: no limitations History of Present Illness HPI Narrative: This is a 66-year-old male history of asthma on albuterol and Advair, takes antihypertensives intermittently, is on simvastatin for dyslipidemia and had prostate cancer with radiation in May he presents with complaint of shortness of breath particularly when lying flat and intermittent chest tightness. Patient states that they are not always correlated together, he states that tightness can occur whether he is lying down, up and walking or resting. He states just feels like a band and a little bit of discomfort substernally states his shortness of breath seems to be worse when he lays flat. He states the chest tightness seems worse at nighttime as well. Has not had fevers, no cold cough or congestion. He states it does not radiate to his back. He denies any radiation down arms. Patient states no vomiting but will get nausea with episodes, he has not had diaphoresis. He is noticed some increased swelling particularly in his hands. Patient did have COVID in June, states he had Paxlovid and has some persistent brain fog but states that the breathing seems to be over the last few weeks. Patient has had hernia repair. No other surgeries. Strong family history his brother who was around 55 of 12 years ago, his dad had a heart attack in his 80s in his mom had a cardiac stent in her 60s he has multiple family members on both sides of the family who have had myocardial infarctions. He states he had a stress test 12-13 years ago when his brother he is not had 1 since he is never had a heart catheterization. No tobacco, alcohol once every 2 or 3 months, no illicit. Dr. Bowling is his PCP. Related Data Previous Rx's Medication Instructions Recorded labetalol 200 mg tablet 200 mg PO DAILY PRN hypertensive 08/22/20 emergency #10 tabs atorvastatin 20 mg tablet 20 mg PO BEDTIME #90 tabs 02/13/21 albuterol sulfate 90 mcg/actuation 1 puff inhalation BID PRN 07/10/21 aerosol inhaler (Ventolin HFA) shortness of breath or wheezing #8.5 grams fluticasone 100 mcg-salmeterol 50 1 inh inhalation BID #60 blisters 12/19/21 mcg/dose blistr powdr for inhalation (Jose Rxmaddy Inhub) Allergies Allergy/AdvReac Type Severity Reaction Status Date / Time No Known Drug Allergies Allergy Verified 01/11/22 09:26 Review of Systems Review of Systems ROS Unobtainable: All systems reviewed & are unremarkable except as noted in HPI and below Patient History Medical History Ankle pain (2009) Asthma Breast pain in male Chicken pox (1961) Diverticular disease Foot pain (2012) Hayfever (1961) [facility]) Shoulder pain (1998) Surgical History Anesthesia History of circumcision History of umbilical hernia repair (1994) Family History Brother No problems noted. Brother Heart attack Heart disease CAD (coronary artery disease) Brother Gout Brother Down's syndrome Father No problems noted. Mother Heart disease Diabetes mellitus Grandmother Heart attack Pancreatitis Sister No problems noted. Grandmother Pancreatic cancer Social History marital status: occupational status: employed Smoking Status: Never smoker alcohol intake: current (1 beer/month) substance use type: does not use caffeine: Yes Smoking Status: Never smoker alcohol intake frequency: holidays/special occasions only Substance Use Type: does not use Exam Narrative Exam Narrative: GENERAL: Alert and oriented x three, male in mild distress. HEENT: Head normocephalic, atraumatic, EOMI, pupils reactive, face symmetric, moist mucous membranes NECK: Supple, full range of motion CARDIOVASCULAR: Regular rate and rhythm without murmurs, rubs or gallops. No JVD. Trace edema bilateral lower extremities. RESPIRATORY: Breath sounds equal bilaterally, no wheezes rales or rhonchi. ABDOMEN: Soft, nontender. Normoactive bowel sounds all 4 quadrants. No guarding or rebound, rigidity, no mass : No CVA tenderness EXTREMITIES: Normal range of motion, no clubbing or edema. Neurovascularly intact NEUROLOGICAL: Cranial nerves II through XII grossly intact. Moving all extremities SKIN: Warm, dry, no petechiae, no rashes or lesions. Initial Vital Signs Initial Vital Signs: Vital Signs Temperature 98.7 F 01/11/22 09:20 Pulse Rate 95 H 01/11/22 09:20 Respiratory Rate 19 01/11/22 09:20 Blood Pressure 181/93 H 01/11/22 09:20 Pulse Oximetry 95 01/11/22 09:20 Oxygen Delivery Method 01/11/22 09:20 Course Orders Ordered: ED Orders 01/11/22 11:12 Covid-19 + FLU A/B + RSV - PCR Stat 01/11/22 11:45 Trop I [Troponin I] Stat 01/11/22 12:01 EKG-12 Lead Stat 01/11/22 14:25 EC echo doppler complete Urgent 01/11/22 14:26 Exercise treadmill NON NUC Urgent 01/11/22 14:27 Education, smoking cessation ONGOING 01/12/22 05:00 BMP [Basic Metabolic Panel] DAILY CBC Auto Diff [Complete Blood Count AUTO DIFF] DAILY Troponin I Routine 01/13/22 05:00 BMP [Basic Metabolic Panel] DAILY CBC Auto Diff [Complete Blood Count AUTO DIFF] DAILY 01/14/22 05:00 BMP [Basic Metabolic Panel] DAILY CBC Auto Diff [Complete Blood Count AUTO DIFF] DAILY Acetaminophen (Acetaminophen 325 Mg Tablet) 650 mg PO Q6H PRN PRN Reason: Fever/Mild Pain (1-3) Albuterol/Ipratropium (Albuterol/Ipratropium 3 Ml Ampul) 3 ml INH [id number] PRN PRN Reason: Wheezing or SOB Aspirin (Aspirin Ec 81 Mg Tablet) 81 mg PO DAILY [facility] Atorvastatin Calcium (Atorvastatin 20 Mg Tablet) 40 mg PO BEDTIME [facility] Losartan Potassium (Losartan 25 Mg Tablet) 25 mg PO DAILY [facility] Last Admin: 01/11/22 18:00 Dose: 25 mg Documented By: TACSO Melatonin (Melatonin 3 Mg Tablet) 6 mg PO BEDTIME PRN PRN Reason: Insomnia Naloxone HCl (Naloxone 0.4 Mg/Ml Vial) 0.2 mg IV Q2MIN PRN PRN Reason: Opiate Reversal Polyethylene Glycol (Polyethylene Glycol 3350 17 Gm Powd.Pack) 17 gm PO DAILY PRN PRN Reason: Constipation Sennosides (Sennosides 8.6 Mg Tablet) 8.6 mg PO BID PRN PRN Reason: Constipation Discontinued Medications Aspirin (Aspirin 81 Mg Chew Tab) 324 mg PO NOW ONE Stop: 01/11/22 10:28 Last Admin: 01/11/22 11:26 Dose: 324 mg Documented By: TRACY Atorvastatin Calcium (Atorvastatin 20 Mg Tablet) 20 mg PO BEDTIME SACHA Consultations Consultation #1: Dr. Marcelino, accepts for cardiac obs. No stress test lots today but they are available tomorrow. Discussed somewhat atypical symptoms may be an angina versus possibly reflux but has strong cardiac history within the family and risk factors. Vital Signs Vital signs: Vital Signs - 8 hr 01/11/22 10:58 01/11/22 10:58 01/11/22 11:00 Pulse Rate 84 Respiratory Rate 14 Blood Pressure 166/77 H 172/79 H Pulse Oximetry 95 Oxygen Delivery Method 01/11/22 11:00 01/11/22 11:30 01/11/22 11:30 Pulse Rate 89 93 H Respiratory Rate 15 22 Blood Pressure 165/75 H Pulse Oximetry 96 95 Oxygen Delivery Method 01/11/22 12:00 01/11/22 12:30 01/11/22 12:31 Pulse Rate 85 85 Respiratory Rate 14 13 Blood Pressure 151/72 H Pulse Oximetry 94 95 Oxygen Delivery Method 01/11/22 12:31 01/11/22 13:00 01/11/22 13:00 Pulse Rate 83 82 Respiratory Rate 13 13 Blood Pressure 167/79 H Pulse Oximetry 97 96 Oxygen Delivery Method 01/11/22 13:29 01/11/22 13:30 01/11/22 13:30 Pulse Rate 83 78 Respiratory Rate 13 12 Blood Pressure 166/81 H Pulse Oximetry 94 95 Oxygen Delivery Method Room Air 01/11/22 14:00 01/11/22 14:00 01/11/22 14:30 Pulse Rate 78 Respiratory Rate 12 Blood Pressure 157/85 H 150/82 H Pulse Oximetry 95 Oxygen Delivery Method 01/11/22 14:30 01/11/22 15:00 01/11/22 15:00 Pulse Rate 77 83 Respiratory Rate 13 13 Blood Pressure 185/88 H Pulse Oximetry 96 96 Oxygen Delivery Method Room Air MDM - Dizziness Lab Data Result diagrams: 01/11/22 09:30 01/11/22 09:30 Labs: Lab Results 01/11/22 01/11/22 01/11/22 Range/Units 09:30 09:30 09:30 WBC 8.6 (4.5-11.0) X10^3/uL RBC 4.59 (4.5-5.9) X10^6/uL Hgb 13.9 (13.5-17.5) g/dL Hct 41.1 (41-53) % MCV 89.6 (80-100) fL MCH 30.4 (26-34) PG MCHC 33.9 (30-36) % RDW 12.9 (11.6-14.8) % Plt Count 289 (150-400) X10^3/uL Neut % (Auto) 75.5 H (50-75) % Lymph % (Auto) 12.5 L (25-40) % [place] % (Auto) 7.0 (3-14) % Eos % (Auto) 3.8 (2-4) % Baso % (Auto) 1.2 (0-2) % Neut # (Auto) 6500 (6741-1439) /uL Lymph # (Auto) 1100 (6713-8287) /uL [place] # (Auto) 600 (0-900) /uL Eos # (Auto) 300 (0-450) /uL Baso # (Auto) 100 (0-100) /uL PT 12.0 (10.1-12.7) SECONDS INR 1.0 (0.9-1.3) APTT 31 (26-36) SECONDS Sodium 140 (137-145) mmol/L Potassium 4.0 (3.4-5.1) mmol/L Chloride 103 (98-107) mmol/L Carbon Dioxide 27 (22-32) mmol/L BUN 9 (9-20) mg/dL Creatinine 0.85 (0.66-1.25) mg/dL Estimated GFR > 60 (>60) mL/min BUN/Creatinine Ratio 10.6 (6-22) Glucose 130 H (80-110) mg/dL Hemoglobin A1c (4.0-6.0) % Calcium 9.6 (8.4-10.2) mg/dL Magnesium 2.0 (1.6-2.3) mg/dL Total Bilirubin 0.7 (0.2-1.3) mg/dL AST 26 (17-59) IU/L ALT 26 (<50) IU/L Alkaline Phosphatase 91 (38-126) U/L Total Creatine Kinase 64 (55-170) U/L CK-MB (CK-2) TNP CK-MB (CK-2) Rel Index TNP Troponin I < 0.012 (0.01-0.034) ng/mL NT-Pro-B Natriuret Pep (<125) pg/mL Total Protein 8.5 H (6.3-8.2) g/dL Albumin 4.6 (3.5-5.0) g/dL Globulin 3.9 (1.7-4.1) g/dL Albumin/Globulin Ratio 1.2 (1.0-2.8) Triglycerides (35-150) mg/dL Cholesterol (140-199) mg/dL LDL Cholesterol, Calc (<100) mg/dL HDL Cholesterol (40-60) mg/dL Lipase 152 (23-300) U/L TSH (0.47-4.68) uIU/mL SARS-CoV-2 (PCR) (Negative) Influenza A (RT-PCR) (NEGATIVE) Influenza B (RT-PCR) (NEGATIVE) RSV (PCR) (Negative) 01/11/22 01/11/22 01/11/22 Range/Units 09:30 09:30 09:30 WBC (4.5-11.0) X10^3/uL RBC (4.5-5.9) X10^6/uL Hgb (13.5-17.5) g/dL Hct (41-53) % MCV (80-100) fL MCH (26-34) PG MCHC (30-36) % RDW (11.6-14.8) % Plt Count (150-400) X10^3/uL Neut % (Auto) (50-75) % Lymph % (Auto) (25-40) % [place] % (Auto) (3-14) % Eos % (Auto) (2-4) % Baso % (Auto) (0-2) % Neut # (Auto) (1881-1177) /uL Lymph # (Auto) (1769-3254) /uL [place] # (Auto) (0-900) /uL Eos # (Auto) (0-450) /uL Baso # (Auto) (0-100) /uL PT (10.1-12.7) SECONDS INR (0.9-1.3) APTT (26-36) SECONDS Sodium (137-145) mmol/L Potassium (3.4-5.1) mmol/L Chloride (98-107) mmol/L Carbon Dioxide (22-32) mmol/L BUN (9-20) mg/dL Creatinine (0.66-1.25) mg/dL Estimated GFR (>60) mL/min BUN/Creatinine Ratio (6-22) Glucose (80-110) mg/dL Hemoglobin A1c 6.2 H (4.0-6.0) % Calcium (8.4-10.2) mg/dL Magnesium (1.6-2.3) mg/dL Total Bilirubin (0.2-1.3) mg/dL AST (17-59) IU/L ALT (<50) IU/L Alkaline Phosphatase (38-126) U/L Total Creatine Kinase (55-170) U/L CK-MB (CK-2) CK-MB (CK-2) Rel Index Troponin I (0.01-0.034) ng/mL NT-Pro-B Natriuret Pep 17 (<125) pg/mL Total Protein (6.3-8.2) g/dL Albumin (3.5-5.0) g/dL Globulin (1.7-4.1) g/dL Albumin/Globulin Ratio (1.0-2.8) Triglycerides (35-150) mg/dL Cholesterol (140-199) mg/dL LDL Cholesterol, Calc (<100) mg/dL HDL Cholesterol (40-60) mg/dL Lipase (23-300) U/L TSH 1.02 (0.47-4.68) uIU/mL SARS-CoV-2 (PCR) (Negative) Influenza A (RT-PCR) (NEGATIVE) Influenza B (RT-PCR) (NEGATIVE) RSV (PCR) (Negative) 01/11/22 01/11/22 01/11/22 Range/Units 09:30 11:12 11:45 WBC (4.5-11.0) X10^3/uL RBC (4.5-5.9) X10^6/uL Hgb (13.5-17.5) g/dL Hct (41-53) % MCV (80-100) fL MCH (26-34) PG MCHC (30-36) % RDW (11.6-14.8) % Plt Count (150-400) X10^3/uL Neut % (Auto) (50-75) % Lymph % (Auto) (25-40) % [place] % (Auto) (3-14) % Eos % (Auto) (2-4) % Baso % (Auto) (0-2) % Neut # (Auto) (5503-4695) /uL Lymph # (Auto) (1096-0143) /uL [place] # (Auto) (0-900) /uL Eos # (Auto) (0-450) /uL Baso # (Auto) (0-100) /uL PT (10.1-12.7) SECONDS INR (0.9-1.3) APTT (26-36) SECONDS Sodium (137-145) mmol/L Potassium (3.4-5.1) mmol/L Chloride (98-107) mmol/L Carbon Dioxide (22-32) mmol/L BUN (9-20) mg/dL Creatinine (0.66-1.25) mg/dL Estimated GFR (>60) mL/min BUN/Creatinine Ratio (6-22) Glucose (80-110) mg/dL Hemoglobin A1c (4.0-6.0) % Calcium (8.4-10.2) mg/dL Magnesium (1.6-2.3) mg/dL Total Bilirubin (0.2-1.3) mg/dL AST (17-59) IU/L ALT (<50) IU/L Alkaline Phosphatase (38-126) U/L Total Creatine Kinase (55-170) U/L CK-MB (CK-2) CK-MB (CK-2) Rel Index Troponin I < 0.012 (0.01-0.034) ng/mL NT-Pro-B Natriuret Pep (<125) pg/mL Total Protein (6.3-8.2) g/dL Albumin (3.5-5.0) g/dL Globulin (1.7-4.1) g/dL Albumin/Globulin Ratio (1.0-2.8) Triglycerides 191 H (35-150) mg/dL Cholesterol 206 H (140-199) mg/dL LDL Cholesterol, Calc 123 H (<100) mg/dL HDL Cholesterol 45 (40-60) mg/dL Lipase (23-300) U/L TSH (0.47-4.68) uIU/mL SARS-CoV-2 (PCR) Negative (Negative) Influenza A (RT-PCR) Flu a negative (NEGATIVE) Influenza B (RT-PCR) Flu b negative (NEGATIVE) RSV (PCR) Negative (Negative) Imaging Data Chest x-ray: Radiologist's Impression: Artis Davis??66??M??1955 ? Allergy/Adv: No Known Drug Allergies Close Chest X-Ray (Signed) Toñito York - 01/11/22 Bone Scan Nuclear Medicine (Signed) Linda Marti - 05/16/21 Abdomen/Pelvis CT (Signed) Richard Welch - 05/11/[address] (Signed) Linda Marti - 08/18/20 Chest X-Ray (Signed) Veronica Zamora - 08/18/20 Ankle X-Ray (Signed) Anshul Johnson - 06/29/20 Mammogram Diagnostic (Signed) Ramakrishna Sy - 07/31/19 DI Result CC 03/28/18 Launch?[place] [address] XRay Report Signed Patient: Artis Davis MR#: [id number] : 1955 Acct:[id number] Age/Sex: 66 / M Date of Service: 01/11/22 Loc: ED Accession Number: [id number] ?? Procedure: XR chest 1V Ordering Provider: Trisha Ruiz D.O. PROCEDURE:? XR CHEST 1V ? INDICATIONS:? FEELS FUZZY SINCE JUNE ? TECHNIQUE:? One view of the chest was acquired.? ? COMPARISON:? [facility], , XR CHEST 1V, 08/18/2020, 7:19. ? FINDINGS:? ? Surgical changes and devices:? None.? ? Lungs and pleura:? Calcified left lung base granuloma unchanged from prior.? Lungs otherwise clear.? No pleural effusions or pneumothorax.? ? Mediastinum:? Mediastinal contours appear normal.? Heart size is normal.? ? Bones and chest wall:? No suspicious bony lesions.? Overlying soft tissues appear unremarkable.? ? IMPRESSION:? No acute finding. ? ? Dictated by: Toñito York M.D. on 01/11/2022 at 10:26 ? ? Approved by: Toñito York M.D. on 01/11/2022 at 10:33?? ECG Data Attestation: I personally reviewed and interpreted this ECG as follows: Interpretation: Sinus rhythm rate of 90 NV 166 QRS of 94 and QTC of 467. No acute ST changes. Patient has prior from 08/18/2020, lead 3 has an S-wave which is new but no other specific changes. This is a sinus rhythm rate 85 NV 176 QRS of 92 and QTC of 454. No acute ST changes appreciated. Patient's EKG appears similar to prior from today. MDM Narrative Medical decision making narrative: This is a 66-year-old male with history of hypertension, dyslipidemia and asthma with shortness of breath that is worse at night and lying flat but also chest tightness that is intermittent. Patient has significant family history for cardiac disease, social labs are negative no acute EKG change. Chest x-ray is negative. EKG shows a new S-wave in 3 from 2020 but no other acute dynamic changes. BNP is negative, no dynamic changes on repeat EKG. Repeat troponin shows Discussed with patient he is currently asymptomatic but would like to put in for chest pain arbs for atypical chest pain. No other clear etiology is found for his discomfort, shortness of breath sounds a little bit like orthopnea BNP is negative he does have an asthma history but is not wheezy on examination. Certainly possibility of GERD exacerbating symptoms is possible with but with his significant family cardiac history would recommend observation stress testing in the scope if negative. Spoke with Dr. Marcelino who accepts with hospitalist. Discharge Plan Departure Patient Disposition: Home Clinical Impression: Atypical chest pain
[2022-01-11 09:52] LABS: Add Manual Diff / Slide Review NO; Basophils Absolute Auto 100 /uL (0-100); Basophils Percent Auto 1.2 % (0-2); Eosinophils Absolute Auto 300 /uL (0-450); Eosinophils Percent Auto 3.8 % (2-4); Hematocrit 41.1 % (41-53); Hemoglobin 13.9 g/dL (13.5-17.5); Lymphocytes Absolute Auto 1100 /uL (1100-4500); Lymphocytes Percent Auto 12.5 % (25-40); Mean Corpuscular HGB Conc 33.9 % (30-36); Mean Corpuscular Hemoglobin 30.4 PG (26-34); Mean Corpuscular Volume 89.6 fL (80-100); Monocytes Absolute Auto 600 /uL (0-900); Neutrophils Absolute Auto 6500 /uL (1500-7000); Neutrophils Percent Auto 75.5 % (50-75); Platelet Count 289 X10^3/uL (150-400); Red Blood Cell Count 4.59 X10^6/uL (4.5-5.9); Red Cell Distribution Width 12.9 % (11.6-14.8); White Blood Cell Count 8.6 X10^3/uL (4.5-11.0)
[2022-01-11 10:06] LABS: PTT Partial Thromboplastin Tim 31 SECONDS (26-36)
[2022-01-11 10:10] LABS: Alanine Aminotransferase 26 IU/L (<50); Albumin 4.6 g/dL (3.5-5.0); Albumin Globulin Ratio 1.2 (1.0-2.8); Alkaline Phosphatase 91 U/L (38-126); Aspartate Aminotransferase 26 IU/L (17-59); BUN Creatinine Ratio 10.6 (6-22); Bilirubin Total 0.7 mg/dL (0.2-1.3); Blood Urea Nitrogen 9 mg/dL (9-20); Calcium 9.6 mg/dL (8.4-10.2); Carbon Dioxide 27 mmol/L (22-32); Chloride 103 mmol/L (98-107); Creatine Kinase 64 U/L (55-170); Estimated Glomerular Filt Rate > 60 mL/min (>60); Globulin 3.9 g/dL (1.7-4.1); Glucose 130 mg/dL (80-110); HEMOLYSIS < 15 (0-50); Lipase 152 U/L (23-300); Sodium 140 mmol/L (137-145); Total Protein 8.5 g/dL (6.3-8.2)
[2022-01-11 10:21] LABS: Troponin I < 0.012 ng/mL (0.01-0.034)
[2022-01-11 11:13] LABS: NT-proBNP (BNP-Adult 18+) 17 pg/mL (<125)
[2022-01-11] MEDS: ASPIRIN 81 MG CHEW TAB 324 MG PO (11:26)
[2022-01-11 12:00] LABS: Influenza A - CEPHEID Flu A NEGATIVE (NEGATIVE); Influenza B - CEPHEID Flu B NEGATIVE (NEGATIVE); Respiratory Syncytial Virus Negative (Negative)
[2022-01-11 12:12] LABS: COVID-19 CEPHEID 4-PLEX PCR Negative (Negative)
[2022-01-11 12:18] LABS: Troponin I < 0.012 ng/mL (0.01-0.034)
--- NOTE | 2022-01-11 14:25 | DI.ECHO.S_ITS ---
[facility] +---------+ : : [address] : : : : [id number] : : : : Phone: [phone]+ Echocardiogram Report + + :Name: PRABHU MAURER Study Date: 01/11/2022 Height: 68 in : :[facility] ReadingLocation: Weight: 220 lb : : Gender: Male BSA: 2.1 m2 : :: 1955 Age: 66 yrs BP: 185/88 mmHg: :Reason For Study: Chest pain : :Ordering Physician: vicente, : :seema Performed By: Vel Cornelius : :Referring: seema zhang : + + Interpretation Summary The left ventricle is normal in size and wall thickness. The left ventricle is hyperdynamic. The ejection fraction is estimated to be 70-75%. There are no focal wall motion abnormalities. Diastolic parameters suggest a relaxation abnormality of the left ventricle, consistent with probable normal filling pressures. The right ventricle is normal in size and function. Pulmonary artery pressures cannot be estimated because of the lack of a measurable TR jet velocity. Both atria are normal in size. There is no significant valvular heart disease. The aortic root is normal size. Procedure: A two-dimensional transthoracic echocardiogram with color flow and Doppler was performed. The study quality was technically adequate. There is no prior echocardiogram noted for this patient. The patient was in normal sinus rhythm during the exam. Left Ventricle: The left ventricle is normal in size and wall thickness. The left ventricle is hyperdynamic. The ejection fraction is estimated to be 70- 75%. There are no focal wall motion abnormalities. Diastolic parameters suggest a relaxation abnormality of the left ventricle, consistent with probable normal filling pressures. Right Ventricle: The right ventricle is normal in size and function. Atria: Both atria are normal in size. The interatrial septum grossly appears intact with no obvious evidence for an atrial septal defect. Mitral Valve: The mitral valve is normal in structure and function. There is no mitral regurgitation noted. Aortic Valve: There is mild aortic valve sclerosis. No aortic regurgitation is present. Tricuspid Valve: The tricuspid valve is normal in structure and function. No tricuspid regurgitation. Pulmonary artery pressures cannot be estimated because of the lack of a measurable TR jet velocity. Pulmonic Valve: The pulmonic valve is normal in structure and function. There is no pulmonic valvular regurgitation. There is no significant valvular heart disease. Great Vessels: The aortic root is normal size. The dimensions of the ascending aorta are normal. The IVC is of normal diameter and collapses greater than 50% with a sniff. This suggests a low right atrial pressure of 3 mm Hg. Pericardium/ Pleura There is no pericardial effusion. There is no pleural effusion. MMode/2D Measurements & Calculations LVIDd: 4.9 cm LVOT diam: 2.2 cm LVIDs: 3.1 cm Ao root diam: 2.8 cm FS: 36.4 % asc Aorta Diam: 3.4 cm IVSd: 1.1 cm LVPWd: 1.1 cm LV sosa. diameter/BSA (cm/m^2): 2.3 LV sys. diameter/BSA (cm/m^2): 1.5 LA dimension: 4.0 cm RA long axis: 4.5 cm LA A2 area: 14.8 cm2 IVC diam: 2.1 cm LA A4 area: 16.2 cm2 LA length (vol): 4.9 cm LA vol: 41.6 ml LA vol index: 19.6 ml/m2 TAPSE_phl: 1.9 cm Doppler Measurements & Calculations Ao V2 max: 219.0 cm/sec LVOT Max Victor M: 111.0 cm/sec Ao V2 mean: 150.0 cm/sec LV V1 max P.9 mmHg Ao max P.0 mmHg LV V1 VTI: 24.7 cm Ao mean P.0 mmHg SHEKHAR(I,D): 2.5 cm2 Ao V2 VTI: 37.7 cm SHEKHAR(V,D): 1.9 cm2 sev ratio: 0.66 SHEKHAR indexed to BSA (cm^2/m^2): 1.2 MV E max victor m: 43.3 cm/sec SV(LVOT): 93.9 ml MV A max victor m: 72.8 cm/sec MV E/A: 0.59 Med Peak E' Victor M: 5.8 cm/sec E/E' med: 7.5 Lat Peak E' Victor M: 6.8 cm/sec E/E' lat: 6.4 E/e' average: 6.9 MV dec time: 0.53 sec AV VR_phl: 0.51 MV P1/2t-pr_phl: 155.0 msec SHEKHAR(VTI)/BSA_phl: 1.2 Reading Physician:05:00 PM
[2022-01-11 14:50] LABS: Cholesterol 206 mg/dL (140-199); HDL Cholesterol 45 mg/dL (40-60); LDL Cholesterol Calculated 123 mg/dL (<100); Triglycerides 191 mg/dL (35-150)
[2022-01-11 15:23] LABS: TSH w/ Reflex to FT4 1.02 uIU/mL (0.47-4.68)
[2022-01-11 15:50] LABS: Hemoglobin A1C% w Est Avg Glu 6.2 % (4.0-6.0)
--- NOTE | 2022-01-11 16:02 | PC.NURSE ---
Day shift: Pt on unit from ED at approx 1600. A&Ox4. Denies any pain or nausea. Steady on his feet. optometric technologist in room at this time. Will continue admit teachings after echo. Pt agrees to call for needs.
--- NOTE | 2022-01-11 17:27 | PM.HP.1 ---
History of Present Illness History of Present Illness Date Patient Seen: 01/11/22 Time Patient Seen: 17:27 Chief complaint: dizzy, chest pain t-2 Narrative: Is a 66-year-old male with past medical history of asthma, hypertension, hyperlipidemia, prostate cancer s/p radiation in May 2021 and strong family history of cardiac disease who presents with shortness of breath and chest pain. Patient states he is noticed some chest tightness which feels different from his normal asthma tightness. He describes pain in the left center chest and was not affected by position or deep breaths. He got concerned given his brother had a giant [place] and 10 years ago. Patient states he had an exercise stress test with Dr. Grubbs a few years ago, but had trouble walking on the treadmill. He is requesting an non treadmill stress test. He states his chest tightness had resolved by the time he got to the ED so nitro was not given. Patient given aspirin 325 mg. Patient has high blood pressure for which she takes labetalol 200 mg as needed, as he is resistant to taking daily antihypertensives. He denies headache, nausea vomiting, abdominal pain or diarrhea. Patient History Medical History Ankle pain (2009) Asthma Breast pain in male Chicken pox (1961) Diverticular disease Foot pain (2012) Hayfever (1961) [place] fever (1977) Shoulder pain (1998) Surgical History Anesthesia History of circumcision History of umbilical hernia repair (1994) Family & Social History Family History Brother No problems noted. Brother Heart attack Heart disease CAD (coronary artery disease) Brother Gout Brother Down's syndrome Father No problems noted. Mother Heart disease Diabetes mellitus Grandmother Heart attack Pancreatitis Sister No problems noted. Grandmother Pancreatic cancer Safety & Behavioral: Feels Safe in Current Yes Environment Been Physically Hurt or No Threatened By a Person Tobacco & Substance use: Smoking Status Never smoker alcohol intake current alcohol intake frequency holiday/special occasion Substance Use Type does not use Meds Home Medications and Allergies Home Medications Medication Instructions Recorded Confirmed Type labetalol 200 mg tablet 200 mg PO DAILY PRN hypertensive 08/22/20 01/11/22 Rx emergency #10 tabs atorvastatin 20 mg tablet 20 mg PO BEDTIME #90 tabs 02/13/21 01/11/22 Rx albuterol sulfate 90 mcg/actuation 1 puff inhalation BID PRN 07/10/21 01/11/22 Rx aerosol inhaler (Ventolin HFA) shortness of breath or wheezing #8.5 grams fluticasone 100 mcg-salmeterol 50 1 inh inhalation BID #60 blisters 12/19/21 01/11/22 Rx mcg/dose blistr powdr for inhalation (Wixela Inhub) Allergies Allergy/AdvReac Type Severity Reaction Status Date / Time No Known Drug Allergies Allergy Verified 01/11/22 09:26 Review of Systems Review of Systems Narrative: All other systems reviewed with the patient and are negative unless otherwise stated. Exam Vital Signs (past 8 hours): - 01/11/22 09:30 01/11/22 10:00 01/11/22 10:01 Pulse Rate 92 H 84 Respiratory Rate 16 11 L Blood Pressure 155/74 H Pulse Oximetry 93 93 Oxygen Delivery Method Room Air 01/11/22 10:01 01/11/22 10:30 01/11/22 10:58 Pulse Rate 86 88 Respiratory Rate 17 Blood Pressure 166/77 H Pulse Oximetry 95 94 Oxygen Delivery Method 01/11/22 10:58 01/11/22 11:00 01/11/22 11:00 Pulse Rate 84 89 Respiratory Rate 14 15 Blood Pressure 172/79 H Pulse Oximetry 95 96 Oxygen Delivery Method 01/11/22 11:30 01/11/22 11:30 01/11/22 12:00 Pulse Rate 93 H 85 Respiratory Rate 22 14 Blood Pressure 165/75 H Pulse Oximetry 95 94 Oxygen Delivery Method 01/11/22 12:30 01/11/22 12:31 01/11/22 12:31 Pulse Rate 85 83 Respiratory Rate 13 13 Blood Pressure 151/72 H Pulse Oximetry 95 97 Oxygen Delivery Method 01/11/22 13:00 01/11/22 13:00 01/11/22 13:29 Pulse Rate 82 83 Respiratory Rate 13 13 Blood Pressure 167/79 H Pulse Oximetry 96 94 Oxygen Delivery Method Room Air 01/11/22 13:30 01/11/22 13:30 01/11/22 14:00 Pulse Rate 78 Respiratory Rate 12 Blood Pressure 166/81 H 157/85 H Pulse Oximetry 95 Oxygen Delivery Method 01/11/22 14:00 01/11/22 14:30 01/11/22 14:30 Pulse Rate 78 77 Respiratory Rate 12 13 Blood Pressure 150/82 H Pulse Oximetry 95 96 Oxygen Delivery Method Room Air 01/11/22 15:00 01/11/22 15:00 Pulse Rate 83 Respiratory Rate 13 Blood Pressure 185/88 H Pulse Oximetry 96 Oxygen Delivery Method Oxygen Delivery Method Room Air Narrative Exam Narrative: GEN: no acute distress HEENT: moist mucous membranes, PERRL NECK: trachea midline, no JVD CV: regular rate and rhythm, no murmurs PULM: clear bilaterally ABD: soft, nontender, nondistended, no organomegaly EXT: warm and well perfused with no edema NEURO: awake, alert, oriented, no focal deficits Objective Labs Result Diagrams: 01/11/22 09:30 01/11/22 09:30 Labs: Laboratory Results - last 24 hr 01/11/22 01/11/22 01/11/22 09:30 09:30 09:30 WBC 8.6 RBC 4.59 Hgb 13.9 Hct 41.1 MCV 89.6 MCH 30.4 MCHC 33.9 RDW 12.9 Plt Count 289 Neut % (Auto) 75.5 H Lymph % (Auto) 12.5 L Antelope % (Auto) 7.0 Eos % (Auto) 3.8 Baso % (Auto) 1.2 Neut # (Auto) 6500 Lymph # (Auto) 1100 Antelope # (Auto) 600 Eos # (Auto) 300 Baso # (Auto) 100 PT 12.0 INR 1.0 APTT 31 Sodium 140 Potassium 4.0 Chloride 103 Carbon Dioxide 27 BUN 9 Creatinine 0.85 Estimated GFR > 60 BUN/Creatinine Ratio 10.6 Glucose 130 H Hemoglobin A1c Calcium 9.6 Magnesium 2.0 Total Bilirubin 0.7 AST 26 ALT 26 Alkaline Phosphatase 91 Total Creatine Kinase 64 CK-MB (CK-2) TNP CK-MB (CK-2) Rel Index TNP Troponin I < 0.012 NT-Pro-B Natriuret Pep Total Protein 8.5 H Albumin 4.6 Globulin 3.9 Albumin/Globulin Ratio 1.2 Triglycerides Cholesterol LDL Cholesterol, Calc HDL Cholesterol Lipase 152 TSH SARS-CoV-2 (PCR) Influenza A (RT-PCR) Influenza B (RT-PCR) RSV (PCR) 01/11/22 01/11/22 01/11/22 09:30 09:30 09:30 WBC RBC Hgb Hct MCV MCH MCHC RDW Plt Count Neut % (Auto) Lymph % (Auto) Antelope % (Auto) Eos % (Auto) Baso % (Auto) Neut # (Auto) Lymph # (Auto) Antelope # (Auto) Eos # (Auto) Baso # (Auto) PT INR APTT Sodium Potassium Chloride Carbon Dioxide BUN Creatinine Estimated GFR BUN/Creatinine Ratio Glucose Hemoglobin A1c 6.2 H Calcium Magnesium Total Bilirubin AST ALT Alkaline Phosphatase Total Creatine Kinase CK-MB (CK-2) CK-MB (CK-2) Rel Index Troponin I NT-Pro-B Natriuret Pep 17 Total Protein Albumin Globulin Albumin/Globulin Ratio Triglycerides Cholesterol LDL Cholesterol, Calc HDL Cholesterol Lipase TSH 1.02 SARS-CoV-2 (PCR) Influenza A (RT-PCR) Influenza B (RT-PCR) RSV (PCR) 01/11/22 01/11/22 01/11/22 09:30 11:12 11:45 WBC RBC Hgb Hct MCV MCH MCHC RDW Plt Count Neut % (Auto) Lymph % (Auto) Antelope % (Auto) Eos % (Auto) Baso % (Auto) Neut # (Auto) Lymph # (Auto) Antelope # (Auto) Eos # (Auto) Baso # (Auto) PT INR APTT Sodium Potassium Chloride Carbon Dioxide BUN Creatinine Estimated GFR BUN/Creatinine Ratio Glucose Hemoglobin A1c Calcium Magnesium Total Bilirubin AST ALT Alkaline Phosphatase Total Creatine Kinase CK-MB (CK-2) CK-MB (CK-2) Rel Index Troponin I < 0.012 NT-Pro-B Natriuret Pep Total Protein Albumin Globulin Albumin/Globulin Ratio Triglycerides 191 H Cholesterol 206 H LDL Cholesterol, Calc 123 H HDL Cholesterol 45 Lipase TSH SARS-CoV-2 (PCR) Negative Influenza A (RT-PCR) Flu a negative Influenza B (RT-PCR) Flu b negative RSV (PCR) Negative Assessment & Plan Assessment & Plan narrative: # chest pain rule out -having shortness of breath and chest tightness, concern for ACS given risk factors and strong family history of cardiac disease as brother from [place] at age 55. However may be related to asthma and recent cold air. -troponins negative x2 -Lexiscan non treadmill stress test ordered -echo reassuring with EF 70-75% with no focal wall motion abnormalities -NPO at midnight -start baby aspirin daily and increase statin -duo nebs as needed # hypertension, chronic -takes labetalol as needed for hypertensive urgency -start losartan 25 mg nightly -discussion was had about echo findings suggestive of chronic hypertension, however patient disagrees with medical guidelines around blood pressure treatment # hyperlipidemia, chronic -increase Lipitor from 20 mg to 40 mg nightly given elevated cholesterol labs Code status is full code. COVID negative. DVT prophylaxis with SCDs. Proxy is Olinda. I have reviewed home meds and used all available resources to reconcile the home meds. This patient will be admitted as observation and will require less than 2 midnights of hospital time to treat chest pain. Time Spent With Patient Critical Care time: I spent a total of [] minutes of critical care time on this patient's care today; this time is exclusive of procedural time.
--- NOTE | 2022-01-11 17:46 | PC.NURSE ---
Day shift: made aware of Pt's HR dropping into the high 40's at times. He remains asymptomatic. Tolerated dinner without issue.
[2022-01-11] MEDS: LOSARTAN 25 MG TABLET PO (18:00)
[2022-01-11] MEDS: ATORVASTATIN 20 MG TABLET 40 MG PO (20:32)
[2022-01-11] MEDS: SODIUM CHLORIDE 0.9% FLUSH 10 ML IV (20:36)
[2022-01-12] VITALS: BP 141/76; PULSE 80; RESP 18; TEMP 36.7; O2SAT 98
[2022-01-12 05:16] VITALS: BP 138/76; PULSE 72; RESP 18; TEMP 36.5; O2SAT 94
[2022-01-12 06:02] LABS: Add Manual Diff / Slide Review NO; BUN Creatinine Ratio 15.1 (6-22); Basophils Absolute Auto 100 /uL (0-100); Blood Urea Nitrogen 13 mg/dL (9-20); Calcium 9.5 mg/dL (8.4-10.2); Carbon Dioxide 27 mmol/L (22-32); Chloride 105 mmol/L (98-107); Eosinophils Absolute Auto 500 /uL (0-450); Eosinophils Percent Auto 6.3 % (2-4); Estimated Glomerular Filt Rate > 60 mL/min (>60); Glucose 115 mg/dL (80-110); HEMOLYSIS < 15 (0-50); Hemoglobin 13.4 g/dL (13.5-17.5); Lymphocytes Absolute Auto 1800 /uL (1100-4500); Lymphocytes Percent Auto 20.2 % (25-40); Mean Corpuscular HGB Conc 33.6 % (30-36); Mean Corpuscular Hemoglobin 30.1 PG (26-34); Mean Corpuscular Volume 89.5 fL (80-100); Monocytes Absolute Auto 900 /uL (0-900); Monocytes Percent Auto 9.9 % (3-14); Neutrophils Absolute Auto 5400 /uL (1500-7000); Neutrophils Percent Auto 62.6 % (50-75); Platelet Count 270 X10^3/uL (150-400); Potassium 4.1 mmol/L (3.4-5.1); Red Blood Cell Count 4.47 X10^6/uL (4.5-5.9); Sodium 140 mmol/L (137-145); White Blood Cell Count 8.7 X10^3/uL (4.5-11.0)
[2022-01-12 06:14] LABS: Troponin I < 0.012 ng/mL (0.01-0.034)
[2022-01-12] MEDS: ACETAMINOPHEN 325 MG TABLET 650 MG PO (07:52)
[2022-01-12] MEDS: LOSARTAN 25 MG TABLET PO (08:01)
[2022-01-12] MEDS: ASPIRIN EC 81 MG TABLET PO (08:01)
[2022-01-12 08:26] VITALS: BP 150/85; PULSE 77; RESP 16; TEMP 36.6; O2SAT 96
--- NOTE | 2022-01-12 10:13 | PC.NURSE ---
Day shift: Pt went down for stress test approx 1005. Off tele and FIELD TECHNICIAN Kyle aware.
--- NOTE | 2022-01-12 10:57 | PC.NURSE ---
Day shift: Pt off unit for second part of stress test. Will be down there for approx 1.5 hours per tech.
--- NOTE | 2022-01-12 12:14 | PC.NURSE ---
Day shift: Pt back in room at 1215. Has no complaints or concerns at this time.
[2022-01-12 12:20] VITALS: BP 143/88; PULSE 57; RESP 16; TEMP 36.5; O2SAT 95
--- NOTE | 2022-01-12 13:10 | CM.IDA ---
Initial DCP Assessment Note Pt is a 66 yo male, resident of [facility], arrives complaining of dizziness and chest pain , admitted observation for chest pain r/o PCP: Chris Garcia Payer: Taurus STARKEY Reviewed chart, met w/patient this morning, introduced self and role. Patient awaiting Lexiscan non treadmill stress test and results; states he is very hopeful he will be discharged home later today to the care of his if medically cleared No barriers identified at this time to patient's safe discharge home w/family to assist; close outpatient f/u recommended. ANUPAMA Valdes
--- NOTE | 2022-01-12 15:27 | PC.NURSE ---
Day shift: Paperwork signed and all questions answered. Receptive to d/c teachings. MD appointment has been made for Pt and he is aware. Encouraged to eat healthy and to exercise as tolerated. Pt has all personal belongings. MD scripts sent to Pt's pharmacy. Pt's Spouse will pick him up in front of ED. HE has been independent in room. Left unit at approx 1525 via WC by SHAR Landers.
--- NOTE | 2022-01-12 17:37 | PM.DS.1 ---
History of Present Illness History of Present Illness Date Patient Seen: 01/12/22 Chief complaint: dizzy, chest pain t-2 Narrative: Per admission history and physical: 66-year-old male with past medical history of asthma, hypertension, hyperlipidemia, prostate cancer s/p radiation in May 2021 and strong family history of cardiac disease who presents with shortness of breath and chest pain.? Patient states he is noticed some chest tightness which feels different from his normal asthma tightness.? He describes pain in the left center chest and was not affected by position or deep breaths.? He got concerned given his brother had a giant [place] and 10 years ago.? Patient states he had an exercise stress test with Dr. Grubbs a few years ago, but had trouble walking on the treadmill.? He is requesting an non treadmill stress test.? He states his chest tightness had resolved by the time he got to the ED so nitro was not given.? Patient given aspirin 325 mg.? Patient has high blood pressure for which she takes labetalol 200 mg as needed, as he is resistant to taking daily antihypertensives.? He denies headache, nausea vomiting, abdominal pain or diarrhea Troponins remain negative overnight. He had very short brief atypical stabbing chest pains overnight. Troponins remain negative. Discharge Providers Provider Date of admission: 01/11/22 15:38 Discharge Date: 01/12/22 Primary care physician: Chris Garcia MD Discharge provider: Edna Panchal MD Summary Hospital Course Discharge Diagnosis: Chest pain, low risk nuclear stress test Hypertension, uncontrolled Hyperlipidemia Prostate cancer in remission Hospital Course: Patient was admitted given a strong family history of coronary disease as well as shortness of breath and chest tightness which was atypical for his usual asthma symptoms. EKGs show were negative for acute changes. Troponins remain negative. Underwent nuclear stress testing on January 12, which was a low risk study. He was noted to have a elevated blood pressures and was initiated on losartan 25 mg nightly. His Lipitor was also increased from 20-40 mg due to his LDL being 123, which was above goal. At the time of discharge, patient was symptom free, and felt he had returned to baseline. Status at Discharge Cognitive/behavioral status at discharge: oriented and at baseline, oriented Functional status at discharge: independent ambulation Time Spent with Patient Time spent: Greater than 30 minutes Exam Vital Signs (past 8 hours): - 01/12/22 12:20 Temperature 97.7 F Pulse Rate 57 L Respiratory Rate 16 Blood Pressure 143/88 H Pulse Oximetry 95 Oxygen Delivery Method Room Air Oxygen Flow Rate 0 Narrative Exam Narrative: GEN: Very pleasant middle-aged male, Alert and oriented x 3, NAD HEENT:NC, Face symmetric CHEST: Respiratory excursions symmetric, CTAB CV: RRR, no M/R/G ABD: Soft, NT/ND, BT present in all 4 quadrants, no organomegaly or masses EXTR: warm, well perfused, no C/C/E SKIN: warm and dry, no rash NEURO: Alert and oriented x 3, nonfocal Objective Labs Result Diagrams: 01/12/22 05:32 01/12/22 05:32 Labs: Laboratory Results - last 24 hr 01/12/22 01/12/22 01/12/22 05:32 05:32 05:32 WBC 8.7 RBC 4.47 L Hgb 13.4 L Hct 40.0 L MCV 89.5 MCH 30.1 MCHC 33.6 RDW 13.0 Plt Count 270 Neut % (Auto) 62.6 Lymph % (Auto) 20.2 L Childress % (Auto) 9.9 Eos % (Auto) 6.3 H Baso % (Auto) 1.0 Neut # (Auto) 5400 Lymph # (Auto) 1800 [place] # (Auto) 900 Eos # (Auto) 500 H Baso # (Auto) 100 Sodium 140 Potassium 4.1 Chloride 105 Carbon Dioxide 27 BUN 13 Creatinine 0.86 Estimated GFR > 60 BUN/Creatinine Ratio 15.1 Glucose 115 H Calcium 9.5 Troponin I < 0.012 PFSH Medical History Ankle pain (2009) Asthma Breast pain in male Chicken pox (1961) Diverticular disease Foot pain (2012) Hayfever (1961) [place] fever (1977) Shoulder pain (1998) Surgical History Anesthesia History of circumcision History of umbilical hernia repair (1994) Family History Brother No problems noted. Brother Heart attack Heart disease CAD (coronary artery disease) Brother Gout Brother Down's syndrome Father No problems noted. Mother Heart disease Diabetes mellitus Grandmother Heart attack Pancreatitis Sister No problems noted. Grandmother Pancreatic cancer Social History marital status: household members: spouse occupational status: employed Smoking Status: Never smoker alcohol intake: current substance use type: does not use caffeine: Yes Discharge Plan Discharge Plan Patient Disposition: Home Provider Discharge Comment: Your stress test came back as a low risk study. Please follow-up with Dr. Garcia in the next 2-3 weeks for blood pressure recheck. Start losartan 25 mg nightly as discussed by Dr. Marcelino. Please monitor your Blood pressures closely and bring a log in to your appointment with Dr. Garcia to review. Discharge orders & Medications Prescriptions: New atorvastatin [Lipitor] 20 mg Tablet 40 mg PO BEDTIME Qty: 60 0RF losartan 25 mg Tablet 25 mg PO DAILY Qty: 30 0RF Continued albuterol sulfate [Ventolin HFA] 90 mcg/actuation HFA aerosol inhaler 1 puff INHALATION BID PRN (Reason: shortness of breath or wheezing) Qty: 8.5 5RF Rx Instructions: APPT DUE IN 07/2021 FOR ANNUAL APPT. PLEASE CALL TO SCHEDULE. THANKS 07/10/21. fluticasone propion-salmeterol [Wixela Inhub] 100-50 mcg/dose blister with device 1 inh inhalation BID Qty: 60 0RF Rx Instructions: APPT DUE W/PCP. PLEASE CALL TO SCHEDULE 12/19/21 Discontinued atorvastatin 20 mg tablet 20 mg PO BEDTIME Qty: 90 1RF labetalol 200 mg tablet 200 mg PO DAILY PRN (Reason: hypertensive emergency) Qty: 10 0RF Rx Instructions: For BP >170/110 Follow up/Referrals: Chris Garcia MD [Primary Care Provider] - 2 Weeks (*Appt on Saturday, @ 4pm with . Please check-in 15 mins before appt. [phone] ) Diet/Activity/Treatments Diet comment: Heart healthy Activity: As tolerated Visit Report/Discharge Packet Instructions: DI for Cardiac Stress Test, DI for Atypical Chest Pain, How to Prevent Falls, DI for Chest Pain, Losartan Discharge Data Primary Care Provider: Chris Garcia Attending Provider: Raj Marcelino VTE Deep Vein Thrombosis/Pulmonary Embolism Present on Admission: No
--- NOTE | 2022-01-15 08:27 | DI.NM.S_ITS ---
DATE OF SERVICE: PROCEDURE: Pharmacological perfusion study. INDICATION: Chest pain, shortness of breath, underlying hypertension and hyperlipidemia. RADIOPHARMACEUTICAL: 27.2 mCi technetium-99m Myoview IV was injected at stress and 8.4 mCi technetium-99m Myoview IV was injected at rest. CARDIAC STRESS: The patient underwent pharmacological perfusion study under the supervision of an attending staff using standard IV Lexiscan protocol. Remained hemodynamically stable. Baseline rhythm was sinus. During stress, no convincing ischemic changes seen. No significant arrhythmias seen. Minimal dyspnea during Lexiscan. No chest discomfort. Baseline blood pressure 170/90 mmHg. RAW DATA: There is increased subdiaphragmatic activity. GATED STUDY: Stress LV ejection fraction 88 percent without any obvious wall motion abnormalities. Normal TID ratio 0.92. Lung/heart ratio 0.31, which is within normal limits. MYOCARDIAL PERFUSION: Stress supine, resting supine and stress prone images were compared to each other. Resting supine images revealed mildly decreased perfusion of apex. Stress supine images revealed mildly decreased perfusion of basilar inferior wall. During stress prone images, complete resolution of basilar inferior wall defect and apex. Stress prone images revealed normal myocardial perfusion study. CONCLUSION: This is a normal myocardial perfusion study with evidence of tissue attenuation artifact, which got resolved during stress prone images. Stress left ventricular ejection fraction 88 percent without any obvious wall motion abnormalities. No anginal symptoms. No ischemic electrocardiographic changes. Overall low-risk myocardial perfusion scan. Artis Davis - FAY/aubrey/LENA doc#: [id number]/job#: [id number] dd: 01/12/2022 12:53:00 dt: 01/12/2022 14:55:00 DICTATING MD/COPIES TO: Chary Smith MD COPIES MNE: MILDRED;
== END 2022-01-12 15:30 | disposition home or self-care (01) ==
LOC: ED 13:52 → AC 15:39
PROVIDERS: Admitting Provider Student in an Organized Health Care Education/Training Program; Emergency Provider Emergency Medicine; PCP Student in an Organized Health Care Education/Training Program; Visit Provider Student in an Organized Health Care Education/Training Program
DX: R42 Dizziness and giddiness (principal); R07.9 Chest pain, unspecified; I10 Essential (primary) hypertension; E78.5 Hyperlipidemia, unspecified; J45.909 Unspecified asthma, uncomplicated; C61 Malignant neoplasm of prostate; Z20.822 Contact with and (suspected) exposure to COVID-19
CPT/HCPCS: 0241U; 36415; 71045; 78452; 80048; 80053; 80061; 82550; 83036; 83690; 83735; 83880; 84443; 84484; 85025; 85610; 85730; 93005; 93010; 93017; 93306; 99284; G0378; A9502; J2785

== ENCOUNTER 2022-01-19 23:24 | Emergency (ER) | payer BC, SELFPAY ==
[2022-01-11 21:17] VITALS: BMI 33.4
[2022-01-19 23:33] VITALS: BP 208/97; PULSE 80; RESP 20; TEMP 36.9; O2SAT 98; BMI 33.4
[2022-01-19 23:37] VITALS: PULSE 83; RESP 21; O2SAT 98
--- NOTE | 2022-01-19 23:40 | DI.RAD.S_ITS ---
PROCEDURE: XR CHEST 1V INDICATIONS: chest pain TECHNIQUE: One view of the chest was acquired. COMPARISON: [facility], CR, XR CHEST 1V, 08/18/2020, 7:19. [facility], CR, XR CHEST 1V, 01/11/2022, 9:57. FINDINGS: Surgical changes and devices: None. Lungs and pleura: There is a small left pleural effusion. A few linear opacities in the left lung base likely represent atelectasis. No definite consolidation. A dense nodule is redemonstrated in the left lung consistent with a calcified granuloma. Mediastinum: Mediastinal contours appear normal. Heart size is normal. Bones and chest wall: No suspicious bony lesions. Overlying soft tissues appear unremarkable. IMPRESSION: 1. Small left pleural effusion with likely associated left basilar atelectasis. Dictated by: Ramakrishna Sy M.D. on 01/20/2022 at 1:18 Approved by: Ramakrishna Sy M.D. on 01/20/2022 at 1:19
[2022-01-19 23:45] VITALS: BP 169/81; PULSE 74; RESP 11; O2SAT 96
[2022-01-19 23:48] LABS: Add Manual Diff / Slide Review NO; Basophils Absolute Auto 100 /uL (0-100); Basophils Percent Auto 0.9 % (0-2); Eosinophils Absolute Auto 500 /uL (0-450); Eosinophils Percent Auto 5.1 % (2-4); Hematocrit 38.9 % (41-53); Hemoglobin 13.3 g/dL (13.5-17.5); Lymphocytes Absolute Auto 2400 /uL (1100-4500); Lymphocytes Percent Auto 24.8 % (25-40); Mean Corpuscular HGB Conc 34.3 % (30-36); Mean Corpuscular Hemoglobin 30.6 PG (26-34); Mean Corpuscular Volume 89.3 fL (80-100); Monocytes Absolute Auto 1000 /uL (0-900); Monocytes Percent Auto 10.2 % (3-14); Neutrophils Absolute Auto 5700 /uL (1500-7000); Platelet Count 259 X10^3/uL (150-400); Prothrombin Time 11.8 SECONDS (10.1-12.7); Red Blood Cell Count 4.36 X10^6/uL (4.5-5.9); Red Cell Distribution Width 13.2 % (11.6-14.8); White Blood Cell Count 9.7 X10^3/uL (4.5-11.0)
[2022-01-19 23:51] LABS: PTT Partial Thromboplastin Tim 32 SECONDS (26-36)
[2022-01-19 23:52] LABS: Alanine Aminotransferase 24 IU/L (<50); Albumin 4.4 g/dL (3.5-5.0); Albumin Globulin Ratio 1.2 (1.0-2.8); Alkaline Phosphatase 94 U/L (38-126); Aspartate Aminotransferase 22 IU/L (17-59); BUN Creatinine Ratio 12.2 (6-22); Bilirubin Total 0.3 mg/dL (0.2-1.3); Blood Urea Nitrogen 11 mg/dL (9-20); Calcium 9.5 mg/dL (8.4-10.2); Carbon Dioxide 26 mmol/L (22-32); Chloride 104 mmol/L (98-107); Creatine Kinase 64 U/L (55-170); Estimated Glomerular Filt Rate > 60 mL/min (>60); Globulin 3.8 g/dL (1.7-4.1); Glucose 107 mg/dL (80-110); HEMOLYSIS < 15 (0-50); Lipase 821 U/L (23-300); Magnesium 2.1 mg/dL (1.6-2.3); Potassium 3.7 mmol/L (3.4-5.1); Sodium 141 mmol/L (137-145); Total Protein 8.2 g/dL (6.3-8.2)
[2022-01-19] MEDS: ASPIRIN 81 MG CHEW TAB 324 MG PO (23:57)
[2022-01-20] VITALS (15 sets, daily range): BP systolic 138–185; BP diastolic 67–87; PULSE 70–81; RESP 8–25; O2SAT 92–99
[2022-01-20 00:03] LABS: Troponin I < 0.012 ng/mL (0.01-0.034)
--- NOTE | 2022-01-20 00:15 | ED_ITS ---
HPI - Chest Pain General Chief Complaint: Chest Pain Stated Complaint: CHEST PAINS/HIGH BP/ER VISIT 01/11 Time Seen by Provider: 01/19/22 23:48 History of Present Illness HPI narrative: Patient is a 66-year-old male history of hypertension presents today with chest pain. He says it has been coming and going for about a week or more. He actually was admitted overnight for atypical chest pain oriented echocardiogram the stress test which were both negative. He says since he left he was discharged home on losartan he has been monitoring his blood pressure 3 times a day. He says blood pressure has been high he take his medicine morning it seems to get higher at night. Today he continue to have his left-sided chest pain it lasted for about 30 minutes. Denies any provocation or palliation. Head seems to be more of a dull ache that does not radiate. He was worried because blood pressure was over 200. However blood pressure has improved his and so has his pain. His appointment next week with his primary care provider. Related Data Previous Rx's Medication Instructions Recorded fluticasone 100 mcg-salmeterol 50 1 inh inhalation BID #60 blisters 12/19/21 mcg/dose blistr powdr for inhalation (Wixela Inhub) atorvastatin 20 mg tablet (Lipitor) 40 mg PO BEDTIME #60 tabs 01/12/22 losartan 25 mg tablet 25 mg PO DAILY #30 tabs 01/12/22 albuterol sulfate 90 mcg/actuation 1 puff inhalation BID PRN 01/17/22 aerosol inhaler (Ventolin HFA) shortness of breath or wheezing #8.5 grams Allergies Allergy/AdvReac Type Severity Reaction Status Date / Time No Known Drug Allergies Allergy Verified 01/19/22 23:39 Review of Systems Review of Systems Narrative: GENERAL: Denies chills, fatigue, malaise, fever, sweats, travel HEENT: Denies sinus pain, ear pain, sore throat, difficulty swallowing, neck pain RESPIRATORY: Denies dyspnea, cough, wheezing, hemoptysis, sputum. CARDIOVASCULAR: See HPI GASTROINTESTINAL: Denies nausea, vomiting, abdominal pain, diarrhea, c onstipation, melena. : Denies dysuria, frequency, incontinence, hematuria, urinary retention, flank pain. MUSCULOSKELETAL: Denies weakness, joint pain, or bony pain SKIN: No rash, no erythema, no pruritus NEUROLOGIC: Denies weakness, dizziness, headache, numbness, change in speech, confusion PSYCHIATRIC: No concerning psychosocial issues. 12 point review of systems is negative except for those stated above and HPI Patient History Medical History Ankle pain (2009) Asthma Breast pain in male Chicken pox (1961) Diverticular disease Foot pain (2012) Hayfever (1961) [place] fever (1977) Shoulder pain (1998) Surgical History Anesthesia History of circumcision History of umbilical hernia repair (1994) Family History Brother No problems noted. Brother Heart attack Heart disease CAD (coronary artery disease) Brother Gout Brother Down's syndrome Father No problems noted. Mother Heart disease Diabetes mellitus Grandmother Heart attack Pancreatitis Sister No problems noted. Grandmother Pancreatic cancer Social History marital status: household members: spouse occupational status: employed Smoking Status: Never smoker alcohol intake: current substance use type: does not use caffeine: Yes Smoking Status: Never smoker alcohol intake frequency: holidays/special occasions only Substance Use Type: does not use Exam Initial Vital Signs Initial Vital Signs: Vital Signs Temperature 98.4 F 01/19/22 23:33 Pulse Rate 80 01/19/22 23:33 Respiratory Rate 20 01/19/22 23:33 Blood Pressure 208/97 H 01/19/22 23:33 Pulse Oximetry 98 01/19/22 23:33 Oxygen Delivery Method 01/19/22 23:33 GENERAL: Pleasant 66-year-old male and in no acute distress. HEENT: Head atraumatic,EOMI, pupils reactive, face symmetric, moist mucous membranes CARDIOVASCULAR: Regular rate and rhythm without murmurs, rubs or gallops. RESPIRATORY: Breath sounds equal bilaterally, no wheezes rales or rhonchi. ABDOMEN: Soft, nontender. Normoactive bowel sounds all 4 quadrants. No guarding or rebound. EXTREMITIES: Normal range of motion, no clubbing or edema. Neurovascularly intact NEUROLOGICAL: Alert and oriented x4.Normal gait and speech. SKIN: Warm, dry, no laceration, no petechiae, no rashes or lesions. Course Orders Ordered: ED Orders 01/19/22 23:36 Complete Blood Count AUTO DIFF Stat Comprehensive Metabolic Panel Stat Lipase Stat Magnesium Stat Partial Thromboplastin Time Stat Prothrombin Time INR Stat Troponin & CK Cardiac Panel Stat 01/19/22 23:40 XR chest 1V Stat 01/20/22 00:02 COVID19 -Nasal RAPID/Pre-Proc Stat 01/20/22 01:56 Trop I [Troponin I] Stat 01/20/22 02:00 EKG-12 Lead Stat Discontinued Medications Aspirin (Aspirin 81 Mg Chew Tab) 324 mg PO NOW ONE Stop: 01/19/22 23:41 Last Admin: 01/19/22 23:57 Dose: 324 mg Documented By: BOY Vital Signs Vital signs: Vital Signs - 8 hr 01/19/22 23:33 01/19/22 23:37 01/19/22 23:45 Temperature 98.4 F Pulse Rate 80 83 Respiratory Rate 20 21 Blood Pressure 208/97 H 169/81 H Pulse Oximetry 98 98 Oxygen Delivery Method Room Air 01/19/22 23:45 01/20/22 00:00 01/20/22 00:00 Temperature Pulse Rate 74 81 Respiratory Rate 11 L 25 H Blood Pressure 175/87 H Pulse Oximetry 96 99 Oxygen Delivery Method 01/20/22 00:15 01/20/22 00:15 01/20/22 00:30 Temperature Pulse Rate 70 77 Respiratory Rate 8 L 16 Blood Pressure 174/79 H Pulse Oximetry 98 97 Oxygen Delivery Method 01/20/22 00:31 01/20/22 00:31 01/20/22 00:45 Temperature Pulse Rate 77 Respiratory Rate 16 Blood Pressure 185/86 H 148/71 H Pulse Oximetry 98 Oxygen Delivery Method 01/20/22 00:45 01/20/22 01:00 01/20/22 01:00 Temperature Pulse Rate 71 74 Respiratory Rate 13 21 Blood Pressure 143/79 H Pulse Oximetry 97 93 Oxygen Delivery Method 01/20/22 01:15 01/20/22 01:15 01/20/22 01:30 Temperature Pulse Rate 79 Respiratory Rate 13 Blood Pressure 166/77 H 138/67 Pulse Oximetry 93 Oxygen Delivery Method 01/20/22 01:30 01/20/22 01:45 01/20/22 01:45 Temperature Pulse Rate 74 75 Respiratory Rate 15 15 Blood Pressure 170/80 H Pulse Oximetry 92 94 Oxygen Delivery Method 01/20/22 02:00 01/20/22 02:00 01/20/22 02:15 Temperature Pulse Rate 76 Respiratory Rate 18 Blood Pressure 150/71 H 149/74 H Pulse Oximetry 95 Oxygen Delivery Method 01/20/22 02:15 01/20/22 02:30 01/20/22 02:30 Temperature Pulse Rate 74 73 Respiratory Rate 22 17 Blood Pressure 144/69 H Pulse Oximetry 94 95 Oxygen Delivery Method 01/20/22 02:45 01/20/22 02:45 01/20/22 03:00 Temperature Pulse Rate 75 75 Respiratory Rate 18 21 Blood Pressure 140/72 Pulse Oximetry 94 95 Oxygen Delivery Method 01/20/22 03:16 01/20/22 03:16 Temperature Pulse Rate 71 Respiratory Rate 11 L Blood Pressure 174/79 H Pulse Oximetry Oxygen Delivery Method MDM - Chest Pain Lab Data Result diagrams: 01/19/22 23:36 01/19/22 23:36 Labs: Lab Results 01/19/22 01/19/22 01/19/22 Range/Units 23:36 23:36 23:36 WBC 9.7 (4.5-11.0) X10^3/uL RBC 4.36 L (4.5-5.9) X10^6/uL Hgb 13.3 L (13.5-17.5) g/dL Hct 38.9 L (41-53) % MCV 89.3 (80-100) fL MCH 30.6 (26-34) PG MCHC 34.3 (30-36) % RDW 13.2 (11.6-14.8) % Plt Count 259 (150-400) X10^3/uL Neut % (Auto) 59.0 (50-75) % Lymph % (Auto) 24.8 L (25-40) % Leake % (Auto) 10.2 (3-14) % Eos % (Auto) 5.1 H (2-4) % Baso % (Auto) 0.9 (0-2) % Neut # (Auto) 5700 (7632-5966) /uL Lymph # (Auto) 2400 (7397-7344) /uL Leake # (Auto) 1000 H (0-900) /uL Eos # (Auto) 500 H (0-450) /uL Baso # (Auto) 100 (0-100) /uL PT 11.8 (10.1-12.7) SECONDS INR 1.0 (0.9-1.3) APTT 32 (26-36) SECONDS Sodium 141 (137-145) mmol/L Potassium 3.7 (3.4-5.1) mmol/L Chloride 104 (98-107) mmol/L Carbon Dioxide 26 (22-32) mmol/L BUN 11 (9-20) mg/dL Creatinine 0.90 (0.66-1.25) mg/dL Estimated GFR > 60 (>60) mL/min BUN/Creatinine Ratio 12.2 (6-22) Glucose 107 (80-110) mg/dL Calcium 9.5 (8.4-10.2) mg/dL Magnesium 2.1 (1.6-2.3) mg/dL Total Bilirubin 0.3 (0.2-1.3) mg/dL AST 22 (17-59) IU/L ALT 24 (<50) IU/L Alkaline Phosphatase 94 (38-126) U/L Total Creatine Kinase 64 (55-170) U/L CK-MB (CK-2) TNP CK-MB (CK-2) Rel Index TNP Troponin I < 0.012 (0.01-0.034) ng/mL Total Protein 8.2 (6.3-8.2) g/dL Albumin 4.4 (3.5-5.0) g/dL Globulin 3.8 (1.7-4.1) g/dL Albumin/Globulin Ratio 1.2 (1.0-2.8) Lipase 821 H D (23-300) U/L SARS-CoV-2 (PCR) (Negative) 01/20/22 01/20/22 Range/Units 00:02 01:56 WBC (4.5-11.0) X10^3/uL RBC (4.5-5.9) X10^6/uL Hgb (13.5-17.5) g/dL Hct (41-53) % MCV (80-100) fL MCH (26-34) PG MCHC (30-36) % RDW (11.6-14.8) % Plt Count (150-400) X10^3/uL Neut % (Auto) (50-75) % Lymph % (Auto) (25-40) % Leake % (Auto) (3-14) % Eos % (Auto) (2-4) % Baso % (Auto) (0-2) % Neut # (Auto) (6899-9981) /uL Lymph # (Auto) (7733-1580) /uL Leake # (Auto) (0-900) /uL Eos # (Auto) (0-450) /uL Baso # (Auto) (0-100) /uL PT (10.1-12.7) SECONDS INR (0.9-1.3) APTT (26-36) SECONDS Sodium (137-145) mmol/L Potassium (3.4-5.1) mmol/L Chloride (98-107) mmol/L Carbon Dioxide (22-32) mmol/L BUN (9-20) mg/dL Creatinine (0.66-1.25) mg/dL Estimated GFR (>60) mL/min BUN/Creatinine Ratio (6-22) Glucose (80-110) mg/dL Calcium (8.4-10.2) mg/dL Magnesium (1.6-2.3) mg/dL Total Bilirubin (0.2-1.3) mg/dL AST (17-59) IU/L ALT (<50) IU/L Alkaline Phosphatase (38-126) U/L Total Creatine Kinase (55-170) U/L CK-MB (CK-2) CK-MB (CK-2) Rel Index Troponin I < 0.012 (0.01-0.034) ng/mL Total Protein (6.3-8.2) g/dL Albumin (3.5-5.0) g/dL Globulin (1.7-4.1) g/dL Albumin/Globulin Ratio (1.0-2.8) Lipase (23-300) U/L SARS-CoV-2 (PCR) Negative (Negative) Imaging Data Chest x-ray: Radiologist's Impression: XRay Report Signed Patient: Artis Davis MR#: [id number] : 1955 Acct:[id number] Age/Sex: 66 / M Date of Service: 01/19/22 Loc: ED Accession Number: [id number] ?? Procedure: XR chest 1V Ordering Provider: Angie Beltrán D.O. PROCEDURE:? XR CHEST 1V ? INDICATIONS:? chest pain ? TECHNIQUE:? One view of the chest was acquired.? ? COMPARISON:? [facility], CR, XR CHEST 1V, 08/18/2020, 7:19.? [facility], CR, XR CHEST 1V, 01/11/2022, 9:57. ? FINDINGS:? ? Surgical changes and devices:? None.? ? Lungs and pleura:? There is a small left pleural effusion.? A few linear opacities in the left lung base likely represent atelectasis.? No definite consolidation.? A dense nodule is redemonstrated in the left lung consistent with a calcified granuloma. ? Mediastinum:? Mediastinal contours appear normal.? Heart size is normal.? ? Bones and chest wall:? No suspicious bony lesions.? Overlying soft tissues appear unremarkable.? ? IMPRESSION:? ? 1. Small left pleural effusion with likely associated left basilar atelectasis. ? ? Dictated by: Ramakrishna Sy M.D. on 01/20/2022 at 1:18 ? ? Approved by: Ramakrishna Sy M.D. on 01/20/2022 at 1:19 ? ECG Data Interpretation: Normal sinus rhythm rate 79 AL interval 182 QRS 90 QTC 70 Q-waves noted in lead [address] changes no T-wave inversions similar to previous EKG on 01/11 EKG 2. Sinus rhythm rate 69 similar to prior EKGs without ischemic changes MDM Narrative Medical decision making narrative: Patient's blood pressure has improved significantly blood pressure now is in the 140s. He may still need to be increased on his blood pressure medication which may be causing some of his chest discomfort. He recently had a stress test and echocardiogram he has no elevation in troponin or EKG changes. At this time I think better blood pressure control he has a follow-up appointment with his PCP in 2 days. Will increase his losartan to 50 mg but 25 twice daily to see if it helps his blood pressure control and his chest discomfort. I have cautioned patient that if his symptoms worsen then he needs to return to the ED for further evaluation symptoms still continue may need cardiology consultation is and possible heart catheterization. However optimal blood pressure control is ideal Lipase is noted to be slightly elevated 121 he has absolutely no nausea vomiting or abdominal pain. No elevation in liver enzymes or bilirubin. Recommending increasing fluid intake At. Differential chest pain includes pulmonary embolism, pneumonia, pneumothorax, GERD, dissection at this time no need for further workup Discharge Plan Departure Patient Disposition: Home Clinical Impression: Hypertension, Atypical chest pain Instructions: High Blood Pressure, DI for Atypical Chest Pain Activity Restrictions/Additional Instructions: *You have been diagnosed with hypertension and atypical chest pain *What to do: At this time he does note that your lipase is mildly elevated but I do not think this is quite causing your the chest discomfort. Please monitor your blood pressure as you have been [place] your PCP. Increase fluid intake this will help your slightly elevated lipase. *Continue to take medications as directed Increase losartan to 25 mg in the morning and at night *Follow up with your primary care provider in 2-3 days or call [phone] *Return to ER if you should have increasing chest pain abdominal pain nausea vomiting shortness of breath or any new, worsening or concerning symptoms Prescriptions: No Action fluticasone propion-salmeterol [Wixela Inhub] 100-50 mcg/dose blister with device 1 inh inhalation BID Qty: 60 0RF Rx Instructions: APPT DUE W/PCP. PLEASE CALL TO SCHEDULE 12/19/21 albuterol sulfate [Ventolin HFA] 90 mcg/actuation HFA aerosol inhaler 1 puff INHALATION BID PRN (Reason: shortness of breath or wheezing) Qty: 8.5 0RF Rx Instructions: APPT DUE IN 07/2021 FOR ANNUAL APPT. PLEASE CALL TO SCHEDULE. THANKS 07/10/21. atorvastatin [Lipitor] 20 mg Tablet 40 mg PO BEDTIME Qty: 60 0RF losartan 25 mg Tablet 25 mg PO DAILY Qty: 30 0RF Referrals: Chris Garcia MD [Primary Care Provider] - Visit Report Forms: Patient Portal/API
[2022-01-20 00:24] LABS: COVID19 -Nasal RAPID Negative (Negative)
[2022-01-20 02:26] LABS: Troponin I < 0.012 ng/mL (0.01-0.034)
== END 2022-01-20 03:24 | disposition home or self-care (01) ==
PROVIDERS: Emergency Provider Emergency Medicine; PCP Student in an Organized Health Care Education/Training Program
DX: I10 Essential (primary) hypertension (principal); R07.89 Other chest pain; Z20.822 Contact with and (suspected) exposure to COVID-19
CPT/HCPCS: 36415; 71045; 80053; 82550; 83690; 83735; 84484; 85025; 85610; 85730; 87635; 93005; 99284; C9803

== ENCOUNTER → 2022-02-27 06:44 | Outpatient (CLI) | payer BC, SELFPAY ==
[2022-01-11 21:17] VITALS: BMI 33.4
--- NOTE | 2022-02-27 06:45 | DI.US.S_ITS ---
PROCEDURE: US ABDOMEN LIMITED INDICATIONS: EPIGASTRIC PAIN TECHNIQUE: Real-time scanning was performed of the abdominal and retroperitoneal organs, with image documentation. COMPARISON: None. FINDINGS: Liver: The liver demonstrates diffusely increased echotexture without focal abnormalities consistent with chronic hepatocellular disease/hepatic steatosis. Gallbladder: Gallbladder is normal in sonographic appearance without gallstones, gallbladder wall thickening, pericholecystic fluid, or abnormal sonographic Arce's. Biliary ducts: Intrahepatic bile ducts are non-dilated. Extrahepatic bile duct caliber measures 7 mm. Normal is 6-7 mm or less in diameter, or 10 mm or less post-cholecystectomy. Pancreas: Pancreas is not well seen secondary to moderate overlying bowel gas and patient scanning characteristics. Miscellaneous: No free abdominal fluid. IMPRESSION: Hepatic steatosis. No acute sonographic abnormalities of the upper abdomen. Dictated by: Cayden Gutierrez M.D. on 02/27/2022 at 8:58 Approved by: Cayden Gutierrez M.D. on 02/27/2022 at 9:00
== END ==
PROVIDERS: PCP Student in an Organized Health Care Education/Training Program; Referring Provider Student in an Organized Health Care Education/Training Program; Visit Provider Student in an Organized Health Care Education/Training Program
DX: K85.90 Acute pancreatitis without necrosis or infection, unspecified (principal); K76.0 Fatty (change of) liver, not elsewhere classified
CPT/HCPCS: 76705

== ENCOUNTER → 2022-03-12 06:34 | Outpatient (CLI) | payer BC, SELFPAY ==
[2022-01-11 21:17] VITALS: BMI 33.4
[2022-03-12 08:08] LABS: Cholesterol 158 mg/dL (140-199); HDL Cholesterol 38 mg/dL (40-60); LDL Cholesterol Calculated 94 mg/dL (<100); Lipase 156 U/L (23-300); Triglycerides 128 mg/dL (35-150); Uric Acid 5.5 mg/dL (3.5-8.5)
== END ==
PROVIDERS: PCP Student in an Organized Health Care Education/Training Program; Referring Provider Student in an Organized Health Care Education/Training Program; Visit Provider Student in an Organized Health Care Education/Training Program
DX: E78.00 Pure hypercholesterolemia, unspecified (principal); M10.9 Gout, unspecified; K85.90 Acute pancreatitis without necrosis or infection, unspecified; R07.89 Other chest pain
CPT/HCPCS: 36415; 80061; 83690; 84550

== ENCOUNTER → 2022-03-28 06:33 | Outpatient (CLI) | payer BC, SELFPAY ==
[2022-01-11 21:17] VITALS: BMI 33.4
[2022-03-28 11:07] LABS: BUN Creatinine Ratio 13.5 (6-22); Blood Urea Nitrogen 12 mg/dL (9-20); Calcium 9.4 mg/dL (8.4-10.2); Carbon Dioxide 30 mmol/L (22-32); Chloride 100 mmol/L (98-107); Estimated Glomerular Filt Rate > 60 mL/min (>60); Glucose 104 mg/dL (80-110); HEMOLYSIS < 15 (0-50); Potassium 4.2 mmol/L (3.4-5.1); Sodium 140 mmol/L (137-145)
== END ==
PROVIDERS: PCP Student in an Organized Health Care Education/Training Program; Referring Provider Internal Medicine; Visit Provider Internal Medicine
DX: I10 Essential (primary) hypertension (principal); R06.09 Other forms of dyspnea
CPT/HCPCS: 36415; 80048

== ENCOUNTER → 2022-04-24 06:44 | Outpatient (CLI) | payer BC, SELFPAY ==
[2022-01-11 21:17] VITALS: BMI 33.4
[2022-04-24 09:45] LABS: BUN Creatinine Ratio 17.7 (6-22); Blood Urea Nitrogen 17 mg/dL (9-20); Calcium 9.5 mg/dL (8.4-10.2); Carbon Dioxide 32 mmol/L (22-32); Chloride 97 mmol/L (98-107); Estimated Glomerular Filt Rate > 60 mL/min (>60); Glucose 104 mg/dL (80-110); HEMOLYSIS < 15 (0-50); Potassium 4.3 mmol/L (3.4-5.1); Sodium 138 mmol/L (137-145)
== END ==
PROVIDERS: PCP Student in an Organized Health Care Education/Training Program; Referring Provider Internal Medicine; Visit Provider Internal Medicine
DX: I10 Essential (primary) hypertension (principal); R06.09 Other forms of dyspnea
CPT/HCPCS: 36415; 80048

== ENCOUNTER → 2022-05-08 06:52 | Outpatient (CLI) | payer BC, SELFPAY ==
[2022-01-11 21:17] VITALS: BMI 33.4
[2022-05-08 09:26] LABS: Free T4, Direct Thyroxine 1.09 ng/dL (0.78-2.19)
[2022-05-08 10:28] LABS: Thyroid Stimulating Hormone 1.49 uIU/mL (0.47-4.68)
== END ==
PROVIDERS: PCP Student in an Organized Health Care Education/Training Program; Referring Provider Internal Medicine; Visit Provider Internal Medicine
DX: R00.2 Palpitations (principal)
CPT/HCPCS: 36415; 84439; 84443

== ENCOUNTER → 2022-05-18 12:44 | Outpatient (CLI) | payer BC, SELFPAY ==
[2022-01-11 21:17] VITALS: BMI 33.4
--- NOTE | 2022-05-23 08:02 | PM.PFT.1 ---
Pulmonary Function Test Referral & Results Date Patient Seen: 05/18/22 Results: The spirometry demonstrates an FVC of 3.08 L which is 72% of predicted. The FEV1 was measured at 2.10 L which is 66% of predicted. The FEV1/FVC ratio was 68 which is 92% of predicted. Following the administration of bronchodilator there was no appreciable change. Lung volumes show an SVC of 3.68 L which is 84% of predicted. The diffusing capacity was measured at 30.51 which is 102% of predicted. The maximum voluntary ventilation was reduced Interpretation: This study demonstrates possibly mild-moderate obstructive lung disease based on reduction FEV1 although FEV1/FVC ratio is preserved. Shape of the flow volume loop does suggest the presence of obstructive lung disease as well, although there is no evidence of benefit after bronchodilator administration There is a minimal reduction in lung volumes which suggest the presence of possibly very mild restrictive lung disease but this probably does not explain the abnormality in the FEV1 above Clinical correlation suggested
== END ==
PROVIDERS: PCP Student in an Organized Health Care Education/Training Program; Referring Provider Student in an Organized Health Care Education/Training Program; Visit Provider Student in an Organized Health Care Education/Training Program
DX: R06.02 Shortness of breath (principal); F17.210 Nicotine dependence, cigarettes, uncomplicated; J45.40 Moderate persistent asthma, uncomplicated
CPT/HCPCS: 94060; 94726; 94729

== ENCOUNTER → 2022-06-19 06:47 | Outpatient (CLI) | payer BC, SELFPAY ==
[2022-01-11 21:17] VITALS: BMI 33.4
[2022-06-19 08:06] LABS: Prostate Specific Antigen 0.577 ng/mL (0.10-4.00)
== END ==
PROVIDERS: PCP Student in an Organized Health Care Education/Training Program; Referring Provider Radiology Radiation Oncology; Visit Provider Radiology Radiation Oncology
DX: C61 Malignant neoplasm of prostate (principal)
CPT/HCPCS: 36415; 84153

== ENCOUNTER → 2022-09-25 09:02 | Outpatient (CLI) | payer BC, SELFPAY ==
[2022-01-11 21:17] VITALS: BMI 33.4
[2022-09-27 05:52] LABS: x Labcorp Estim. Avg Glu (eAG) 131 mg/dL (.); x Labcorp Hemoglobin A1c 6.2 % (4.8-5.6)
== END ==
PROVIDERS: PCP Family Medicine; Referring Provider Family Medicine; Visit Provider Family Medicine
DX: R73.01 Impaired fasting glucose (principal)
CPT/HCPCS: 36415; 83036

== ENCOUNTER → 2022-12-19 06:53 | Outpatient (CLI) | payer BC, SELFPAY ==
[2022-01-11 21:17] VITALS: BMI 33.4
[2022-12-19 08:27] LABS: Prostate Specific Antigen 0.495 ng/mL (0.10-4.00)
== END ==
PROVIDERS: PCP Family Medicine; Referring Provider Radiology Radiation Oncology; Visit Provider Radiology Radiation Oncology
DX: C61 Malignant neoplasm of prostate (principal)
CPT/HCPCS: 36415; 84153

== ENCOUNTER → 2023-01-09 07:21 | Outpatient (CLI) | payer BC, SELFPAY ==
[2022-01-11 21:17] VITALS: BMI 33.4
[2023-01-09 07:49] LABS: Add Manual Diff / Slide Review NO; Basophils Absolute Auto 100 /uL (0-100); Basophils Percent Auto 0.9 % (0-2); Eosinophils Absolute Auto 500 /uL (0-450); Eosinophils Percent Auto 5.5 % (2-4); Hematocrit 38.2 % (41-53); Lymphocytes Absolute Auto 2200 /uL (1100-4500); Lymphocytes Percent Auto 26.3 % (25-40); Mean Corpuscular Hemoglobin 30.5 PG (26-34); Mean Corpuscular Volume 89.6 fL (80-100); Monocytes Absolute Auto 800 /uL (0-900); Monocytes Percent Auto 9.6 % (3-14); Neutrophils Absolute Auto 4800 /uL (1500-7000); Neutrophils Percent Auto 57.7 % (50-75); Platelet Count 266 X10^3/uL (150-400); Red Blood Cell Count 4.27 X10^6/uL (4.5-5.9); Red Cell Distribution Width 13.1 % (11.6-14.8); White Blood Cell Count 8.4 X10^3/uL (4.5-11.0)
[2023-01-09 07:55] LABS: Hemoglobin A1C% w Est Avg Glu 6.2 % (4.0-6.0)
[2023-01-09 08:17] LABS: Alanine Aminotransferase 18 IU/L (<50); Albumin 4.1 g/dL (3.5-5.0); Albumin Globulin Ratio 1.3 (1.0-2.8); Alkaline Phosphatase 71 U/L (38-126); Aspartate Aminotransferase 20 IU/L (17-59); Bilirubin Total 0.7 mg/dL (0.2-1.3); Blood Urea Nitrogen 15 mg/dL (9-20); Calcium 9.8 mg/dL (8.4-10.2); Carbon Dioxide 28 mmol/L (22-32); Chloride 103 mmol/L (98-107); Cholesterol 167 mg/dL (140-199); Estimated Glomerular Filt Rate > 60 mL/min (>60); Globulin 3.2 g/dL (1.7-4.1); Glucose 117 mg/dL (80-110); HDL Cholesterol 41 mg/dL (40-60); HEMOLYSIS < 15 (0-50); LDL Cholesterol Calculated 93 mg/dL (<100); Potassium 3.8 mmol/L (3.4-5.1); Sodium 138 mmol/L (137-145); Total Protein 7.3 g/dL (6.3-8.2); Triglycerides 165 mg/dL (35-150)
== END ==
PROVIDERS: PCP Family Medicine; Referring Provider Family Medicine; Visit Provider Family Medicine
DX: Z00.00 Encounter for general adult medical examination without abnormal findings (principal); I10 Essential (primary) hypertension; E78.00 Pure hypercholesterolemia, unspecified; R73.01 Impaired fasting glucose
CPT/HCPCS: 36415; 80053; 80061; 83036; 85025

== ENCOUNTER → 2023-05-07 11:21 | Outpatient (CLI) | payer MEDICARE, OTHER, SELFPAY ==
[2023-05-07 09:46] VITALS: BMI 33.4
[2023-05-07 12:31] LABS: Appearance Urine UA SL CLOUDY; Bilirubin Urine UA NEGATIVE (NEGATIVE); Color Urine UA YELLOW; Glucose Urine UA NEGATIVE (Negative); Ketones Urine UA NEGATIVE (NEGATIVE); Leukocyte Esterase Urine UA 2+ (NEGATIVE); Nitrite Urine UA POSITIVE (Negative); Occult Blood Urine UA 1+ (Negative); Protein Urine UA 1+ (Negative); Urobilinogen Urine UA 0.2 E.U./dL (0.2)
[2023-05-07 12:34] LABS: RBC Urine 5-10/HPF (0-5/HPF); Urine Volume 10mL (spun)
[2023-05-07 12:35] LABS: Bacteria Urine Many (>30); Culture Indicated Urine Specimen Cultured; Squamous Epithelial Cell Urine 1-5 /HPF (0-5/HPF); WBC Urine 30-100/HPF (0-5/HPF)
== END ==
PROVIDERS: PCP Family Medicine; Referring Provider Family Medicine; Visit Provider Family Medicine
DX: R30.0 Dysuria (principal)
CPT/HCPCS: 81001; 87077; 87086; 87147; 87186

== ENCOUNTER → 2023-08-08 07:02 | Outpatient (CLI) | payer MEDICARE, OTHER, SELFPAY ==
[2023-05-07 09:46] VITALS: BMI 33.4
[2023-08-08 09:12] LABS: Prostate Specific Antigen 0.629 ng/mL (0.10-4.00)
[2023-08-08 09:14] LABS: Testosterone 106 ng/dL (71.8-623)
== END ==
PROVIDERS: PCP Family Medicine; Referring Provider Radiology Radiation Oncology; Visit Provider Radiology Radiation Oncology
DX: C61 Malignant neoplasm of prostate (principal)
CPT/HCPCS: 36415; 84153; 84403

== ENCOUNTER → 2023-08-20 06:42 | Outpatient (CLI) | payer MEDICARE, OTHER, SELFPAY ==
[2023-05-07 09:46] VITALS: BMI 33.4
[2023-08-20 08:21] LABS: BUN Creatinine Ratio 17.3 (6-22); Blood Urea Nitrogen 18 mg/dL (9-20); Calcium 9.7 mg/dL (8.4-10.2); Carbon Dioxide 30 mmol/L (22-32); Chloride 103 mmol/L (98-107); Estimated Glomerular Filt Rate > 60 mL/min (>60); Glucose 117 mg/dL (80-110); HEMOLYSIS < 15 (0-50); Sodium 138 mmol/L (137-145)
[2023-08-20 09:00] LABS: Hemoglobin A1C% w Est Avg Glu 5.6 % (4.0-6.0)
[2023-08-20 09:10] LABS: Hep C Virus Ab w/Reflex Quant NEGATIVE s/c (NEGATIVE)
[2023-08-20 09:25] LABS: Creatinine Urine Random 163.04 mg/dL
[2023-08-20 09:31] LABS: Microalbumin Urine Random 1.1 mg/dL (0-1.6)
== END ==
PROVIDERS: PCP Family Medicine; Referring Provider Family Medicine; Visit Provider Family Medicine
DX: Z00.00 Encounter for general adult medical examination without abnormal findings (principal); R73.01 Impaired fasting glucose; I10 Essential (primary) hypertension; C61 Malignant neoplasm of prostate
CPT/HCPCS: 36415; 80048; 82043; 82570; 83036; 86803

== ENCOUNTER → 2023-09-20 11:08 | Outpatient (CLI) | payer MEDICARE, OTHER, SELFPAY ==
[2023-05-07 09:46] VITALS: BMI 33.4
--- NOTE | 2023-09-20 11:09 | DI.RAD.S_ITS ---
PROCEDURE: XR FOOT RT MIN 3V INDICATIONS: Patient hit right great toe on bollard TECHNIQUE: 3 views of the foot were acquired. COMPARISON: None. FINDINGS: Bones: Ill-defined lucency at the lateral aspect of the distal 1st phalanx base. It is not well seen on all images. Not Soft tissues: No tibiotalar joint effusion. Achilles tendon appears normal. IMPRESSION: Ill-defined lucency at the base of the 1st distal phalanx not well seen on all views. Nondisplaced fracture cannot be excluded. Recommend correlation point tenderness in short interval imaging follow-up. Dictated by: Veronica Zamora M.D. on 09/20/2023 at 11:28 Approved by: Veronica Zamora M.D. on 09/20/2023 at 11:30
== END ==
PROVIDERS: PCP Family Medicine; Referring Provider Nurse Practitioner Family; Visit Provider Nurse Practitioner Family
DX: M79.674 Pain in right toe(s) (principal)
CPT/HCPCS: 73630

== ENCOUNTER → 2023-12-19 06:54 | Outpatient (CLI) | payer MEDICARE, OTHER, SELFPAY ==
[2023-05-07 09:46] VITALS: BMI 33.4
[2023-12-19 09:11] LABS: Prostate Specific Antigen 0.556 ng/mL (0.10-4.00)
== END ==
PROVIDERS: PCP Family Medicine; Referring Provider Radiology Radiation Oncology; Visit Provider Radiology Radiation Oncology
DX: C61 Malignant neoplasm of prostate (principal)
CPT/HCPCS: 36415; 84153

== ENCOUNTER → 2024-01-10 07:27 | Outpatient (CLI) | payer MEDICARE, OTHER, SELFPAY ==
[2023-05-07 09:46] VITALS: BMI 33.4
--- NOTE | 2024-01-10 07:53 | DI.RAD.S_ITS ---
PROCEDURE: XR CHEST 2V INDICATIONS: Cough TECHNIQUE: 2 views of the chest were acquired. COMPARISON: [facility], , XR CHEST 1V, 01/20/2022, 0:34. FINDINGS: Surgical changes and devices: None. Lungs and pleura: Lungs clear bilaterally without focal airspace opacity or consolidation. Calcified nodule within the left lower lung is unchanged. No evidence of pneumothorax or pleural effusion. Mediastinum: Mediastinal contours are normal. Heart size is normal. Bones and chest wall: Degenerative changes throughout the thoracic spine. IMPRESSION: No acute cardiopulmonary abnormality is seen. Dictated by: Joseph Lugo M.D. on 01/10/2024 at 10:29 Approved by: Joseph Lugo M.D. on 01/10/2024 at 10:30
[2024-01-10 09:19] LABS: Influenza A - CEPHEID Flu A POSITIVE (NEGATIVE); Influenza B - CEPHEID Flu B NEGATIVE (NEGATIVE); Respiratory Syncytial Virus Negative (Negative)
[2024-01-10 09:26] LABS: COVID-19 CEPHEID 4-PLEX PCR Negative (Negative)
== END ==
PROVIDERS: PCP Family Medicine; Referring Provider Nurse Practitioner Family; Visit Provider Nurse Practitioner Family
DX: R05.1 Acute cough (principal); R50.9 Fever, unspecified; R05.9 Cough, unspecified; B34.9 Viral infection, unspecified
CPT/HCPCS: 0241U; 71046

== ENCOUNTER → 2024-02-13 06:54 | Outpatient (CLI) | payer MEDICARE, OTHER, SELFPAY ==
[2023-05-07 09:46] VITALS: BMI 33.4
[2024-02-13 08:03] LABS: Hemoglobin A1C% w Est Avg Glu 5.7 % (4.0-6.0)
[2024-02-13 08:04] LABS: Alanine Aminotransferase 21 IU/L (<50); Albumin 4.4 g/dL (3.5-5.0); Albumin Globulin Ratio 1.4 (1.0-2.8); Alkaline Phosphatase 77 U/L (38-126); Aspartate Aminotransferase 26 IU/L (17-59); Bilirubin Total 0.6 mg/dL (0.2-1.3); Blood Urea Nitrogen 16 mg/dL (9-20); Calcium 9.9 mg/dL (8.4-10.2); Carbon Dioxide 30 mmol/L (22-32); Chloride 101 mmol/L (98-107); Cholesterol 185 mg/dL (140-199); Estimated Glomerular Filt Rate > 60 mL/min (>60); Globulin 3.2 g/dL (1.7-4.1); Glucose 118 mg/dL (80-110); HDL Cholesterol 41 mg/dL (40-60); HEMOLYSIS < 15 (0-50); LDL Cholesterol Calculated 105 mg/dL (<100); Potassium 3.4 mmol/L (3.4-5.1); Sodium 139 mmol/L (137-145); Total Protein 7.6 g/dL (6.3-8.2); Triglycerides 193 mg/dL (35-150)
[2024-02-13 08:10] LABS: Hematocrit 39.3 % (41-53); Hemoglobin 13.3 g/dL (13.5-17.5); Mean Corpuscular HGB Conc 33.8 % (30-36); Mean Corpuscular Hemoglobin 30.5 PG (26-34); Mean Corpuscular Volume 90.3 fL (80-100); Platelet Count 287 X10^3/uL (150-400); Red Blood Cell Count 4.35 X10^6/uL (4.5-5.9); White Blood Cell Count 10.2 X10^3/uL (4.5-11.0)
== END ==
PROVIDERS: PCP Family Medicine; Referring Provider Family Medicine; Visit Provider Family Medicine
DX: R73.01 Impaired fasting glucose (principal); I10 Essential (primary) hypertension; Z00.00 Encounter for general adult medical examination without abnormal findings; C61 Malignant neoplasm of prostate; E78.00 Pure hypercholesterolemia, unspecified
CPT/HCPCS: 36415; 80053; 80061; 83036; 85027

== ENCOUNTER → 2024-06-18 06:51 | Outpatient (CLI) | payer MEDICARE, OTHER, SELFPAY ==
[2023-05-07 09:46] VITALS: BMI 33.4
[2024-06-18 09:34] LABS: Prostate Specific Antigen 0.673 ng/mL (0.10-4.00)
== END ==
PROVIDERS: PCP Family Medicine; Referring Provider Radiology Radiation Oncology; Visit Provider Radiology Radiation Oncology
DX: C61 Malignant neoplasm of prostate (principal)
CPT/HCPCS: 36415; 84153

== ENCOUNTER → 2024-08-27 07:35 | Outpatient (CLI) | payer MEDICARE, OTHER, SELFPAY ==
[2023-05-07 09:46] VITALS: BMI 33.4
[2024-08-27 08:21] LABS: Hemoglobin A1C% w Est Avg Glu 5.6 % (4.0-6.0)
[2024-08-27 08:34] LABS: Blood Urea Nitrogen 14 mg/dL (9-20); Calcium 10.0 mg/dL (8.4-10.2); Carbon Dioxide 31 mmol/L (22-32); Chloride 99 mmol/L (98-107); Estimated Glomerular Filt Rate > 60 mL/min (>60); Glucose 120 mg/dL (70-99); HEMOLYSIS < 15 (0-50); Potassium 4.2 mmol/L (3.4-5.1); Sodium 138 mmol/L (137-145)
== END ==
PROVIDERS: PCP Family Medicine; Referring Provider Family Medicine; Visit Provider Family Medicine
DX: E66.9 Obesity, unspecified (principal); R73.01 Impaired fasting glucose; I10 Essential (primary) hypertension
CPT/HCPCS: 36415; 80048; 83036

== ENCOUNTER 2025-01-31 19:59 | Emergency (ER) | payer MEDICARE, OTHER, SELFPAY ==
[2023-05-07 09:46] VITALS: BMI 33.4
[2025-01-31] VITALS (10 sets, daily range): BP systolic 130–187; BP diastolic 62–87; PULSE 90–102; RESP 12–28; TEMP 37.3; O2SAT 92–95; BMI 32.6
--- NOTE | 2025-01-31 20:08 | DI.RAD.S_ITS ---
PROCEDURE: XR CHEST 1V INDICATIONS: Chest Pain TECHNIQUE: One view of the chest was acquired. COMPARISON: [facility], CR, XR CHEST 2V, 01/10/2024, 7:53. [facility], CR, XR CHEST 1V, 01/20/2022, 0:34. FINDINGS: Surgical changes and devices: None. Lungs and pleura: Lungs are clear. No pleural effusions or pneumothorax. Calcified granuloma of the left lower lung zone. Mediastinum: Mediastinal contours appear normal. Heart size is normal. Bones and chest wall: No suspicious bony lesions. Overlying soft tissues appear unremarkable. IMPRESSION: No acute cardiopulmonary abnormality is seen. Dictated by: Alberto Briggs M.D. on 01/31/2025 at 20:47 Approved by: Alberto Briggs M.D. on 01/31/2025 at 20:47
--- NOTE | 2025-01-31 20:16 | EKG_ITS ---
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
--- NOTE | 2025-01-31 20:34 | PC.NURSE ---
Imaging at bedside
[2025-01-31 20:39] LABS: Add Manual Diff / Slide Review NO; Hematocrit 39.6 % (41-53); Hemoglobin 13.5 g/dL (13.5-17.5); Lymphocytes Absolute Auto 2300 /uL (1100-4500); Mean Corpuscular HGB Conc 34.2 % (30-36); Mean Corpuscular Hemoglobin 30.4 PG (26-34); Mean Corpuscular Volume 88.7 fL (80-100); Platelet Count 343 X10^3/uL (150-400)
--- NOTE | 2025-01-31 20:41 | PC.NURSE ---
Pt presents stating intermittent pinpoint stabbing chest pain without radiation. Pt states has had this same pain for years and has had cardiac work-ups previously for such. States concern for this episode because it is happening more frequently. States some increased SOB. Denies n/v during episodes. States episodes don't seem to come on specifically during exertion or rest. Pt connected to cardiac, resp, blood pressure, and pulse ox monitors with alarms on and audible. VS stable at this time. Call light within reach. Continued plan of care discussed. No further requests or concerns at this time. remains at bedside.
[2025-01-31 20:47] LABS: INR 1.0 (0.9-1.3); Prothrombin Time 11.2 SECONDS (9.4-12.5)
[2025-01-31 20:50] LABS: PTT Partial Thromboplastin Tim 26 SECONDS (25.1-36.5)
[2025-01-31 20:53] LABS: Alanine Aminotransferase 18 IU/L (<50); Albumin 4.7 g/dL (3.5-5.0); Albumin Globulin Ratio 1.2 (1.0-2.8); Alkaline Phosphatase 77 U/L (38-126); Blood Urea Nitrogen 18 mg/dL (9-20); Calcium 10.1 mg/dL (8.4-10.2); Carbon Dioxide 24 mmol/L (22-32); Chloride 105 mmol/L (98-107); Creatine Kinase 40 U/L (55-170); Estimated Glomerular Filt Rate > 60 mL/min (>60); Globulin 3.9 g/dL (1.7-4.1); Glucose 149 mg/dL (70-99); HEMOLYSIS < 15 (0-50); Lipase 540 U/L (23-300); Magnesium 2.0 mg/dL (1.6-2.3); Potassium 3.9 mmol/L (3.4-5.1); Sodium 141 mmol/L (137-145); Total Protein 8.6 g/dL (6.3-8.2)
[2025-01-31 21:05] LABS: NT-proBNP (BNP-Adult 18+) < 20 pg/mL (<125); Troponin I < 0.012 ng/mL (0.01-0.034)
--- NOTE | 2025-01-31 21:59 | ED_ITS ---
HPI - Chest Pain General Chief Complaint: Chest Pain Stated Complaint: chest px/high bp Time Seen by Provider: 01/31/25 20:13 Source: patient Mode of arrival: Ambulatory Limitations: no limitations History of Present Illness HPI narrative: 69-year-old male with a history of diabetes, hypertension and a family history of coronary artery disease presents with daily left-sided cramping like pain in his chest that lasts for maybe a couple of minutes in the evening for the past week. Last evening it traveled some to the lateral side of his chest prompting him to come into the ER. He also has a history of asthma but does not complain of any shortness of breath. Twelve point review of systems otherwise negative. Related Data Previous Rx's ?Medication ?Instructions ?Recorded losartan 50 mg tablet 50 mg PO DAILY blood pressur e #100 03/10/24 tabs metformin 500 mg tablet,extended 500 mg PO DAILY blood sugars #180 03/10/24 release 24 hr tabs colchicine 0.6 mg tablet 0.6 mg PO DAILY PRN gout fla re #15 04/15/24 tabs fluticasone 250 mcg-salmeterol 50 1 inh inhalation BID #60 ea 09/07/24 mcg/dose blistr powdr for inhalation (Wixela Inhub) Allergies Allergy/AdvReac Type Severity Reaction Status Date / Time amoxicillin Allergy Intermediate Hives Verified 01/31/25 20:08 Review of Systems Review of Systems ROS Unobtainable: All systems reviewed & are unremarkable except as noted in HPI and below Patient History Medical History (Updated 01/31/25 @ 23:56 by Usman Edward MD) Obesity (BMI 30.0-34.9) Encounter for subsequent annual wellness visit (AWV) in Medicare patient Impaired fasting glucose Benign essential HTN Diverticular disease Asthma Breast pain in male Chicken pox (1961) Ankle pain (2009) Foot pain (2012) Hayfever (1961) Shoulder pain (1998) [place] fever (1977) Surgical History History of circumcision Anesthesia History of umbilical hernia repair (1994) Family History Brother No problems noted. Brother Heart attack Heart disease CAD (coronary artery disease) Brother Gout Brother Down's syndrome Father No problems noted. Mother Heart disease Diabetes mellitus Grandmother Heart attack Pancreatitis Sister No problems noted. Grandmother Pancreatic cancer Social History marital status: household members: spouse occupational status: employed Smoking Status: Never smoker alcohol intake: current substance use type: does not use caffeine: Yes Smoking Status: Never smoker alcohol intake frequency: holidays/special occasions only Exam Narrative Exam Narrative: General: Patient appears to be in no acute distress, acting appropriately Head: normocephalic, atraumatic, HEENT: Pupils equal round reactive, eyes tracking well, neck supple, no JVD Heart: regular rate and rhythm, no murmurs, rubs, or gallops heard Lungs: clear to auscultation, no adventitious sounds Abdomen: soft , nontender, nondistended, positive bowel sounds Neurological: no focal neurological signs, moving all extremities well, alert and oriented x3, Psych: good judgment ,good insight, mood is normal. Initial Vital Signs Initial Vital Signs: Vital Signs Temperature 99.2 F 01/31/25 20:04 Pulse Rate 102 H 01/31/25 20:04 Respiratory Rate 18 01/31/25 20:04 Blood Pressure 187/87 H 01/31/25 20:04 Pulse Oximetry 95 01/31/25 20:04 Oxygen Delivery Method Room Air 01/31/25 20:04 Scores HEART Score Heart Score history: Moderately Suspicious Heart Score EKG: Normal Heart Score Age: > or = 65 years old Heart Score risk factors: 1-2 risk factors Heart Score troponin: < or = to normal limit Heart Score Total: 4 Course Orders Ordered: ED Orders 01/31/25 20:08 XR chest 1V Stat EKG-12 Lead Stat 01/31/25 20:30 Complete Blood Count AUTO DIFF Stat Comprehensive Metabolic Panel Stat Lipase Stat Magnesium Stat NT-proBNP (BNP-Adult 18+) Stat PTT Partial Thromboplastin Erwin Stat Prothrombin Time INR Stat Troponin & CK Cardiac Panel Stat 01/31/25 22:29 Trop I [Troponin I] Stat Discontinued Medications Aspirin (Aspirin 81 Mg Chew Tab) 324 mg PO NOW ONE Stop: 01/31/25 20:09 Last Admin: 01/31/25 22:41 Dose: Not Given Documented By: LS Vital Signs Vital signs: Vital Signs - 8 hr 01/31/25 21:00 01/31/25 21:00 01/31/25 21:30 Pulse Rate 95 H Respiratory Rate 16 Blood Pressure 165/74 H 143/67 H Pulse Oximetry 92 Oxygen Delivery Method Room Air 01/31/25 21:30 01/31/25 22:00 01/31/25 22:00 Pulse Rate 96 H 96 H Respiratory Rate 18 24 Blood Pressure 157/74 H Pulse Oximetry 94 94 Oxygen Delivery Method Room Air Room Air 01/31/25 22:30 01/31/25 22:30 01/31/25 23:00 Pulse Rate 96 H 91 H Respiratory Rate 28 H 14 Blood Pressure 165/73 H Pulse Oximetry 94 95 Oxygen Delivery Method Room Air Room Air 01/31/25 23:00 01/31/25 23:30 01/31/25 23:30 Pulse Rate 92 H Respiratory Rate 14 Blood Pressure 152/72 H 130/62 Pulse Oximetry 93 Oxygen Delivery Method Room Air MDM - Chest Pain Lab Data 01/31/25 20:30 01/31/25 20:30 Labs: Lab Results 01/31/25 01/31/25 Range/Units 20:30 22:29 WBC 10.4 (4.5-11.0) X10^3/uL RBC 4.46 L (4.5-5.9) X10^6/uL Hgb 13.5 (13.5-17.5) g/dL Hct 39.6 L (41-53) % MCV 88.7 (80-100) fL MCH 30.4 (26-34) PG MCHC 34.2 (30-36) % RDW 13.3 (11.6-14.8) % Plt Count 343 (150-400) X10^3/uL Neut % (Auto) 64.1 (50-75) % Lymph % (Auto) 21.6 L (25-40) % Osborne % (Auto) 7.8 (3-14) % Eos % (Auto) 5.1 H (2-4) % Baso % (Auto) 1.4 (0-2) % Neut # (Auto) 6700 (8373-5753) /uL Lymph # (Auto) 2300 (0345-5250) /uL Osborne # (Auto) 800 (0-900) /uL Eos # (Auto) 500 H (0-450) /uL Baso # (Auto) 100 (0-100) /uL PT 11.2 (9.4-12.5) SECONDS INR 1.0 (0.9-1.3) APTT 26 (25.1-36.5) SECONDS Sodium 141 (137-145) mmol/L Potassium 3.9 (3.4-5.1) mmol/L Chloride 105 (98-107) mmol/L Carbon Dioxide 24 (22-32) mmol/L BUN 18 (9-20) mg/dL Creatinine 1.15 (0.66-1.25) mg/dL Estimated GFR > 60 (>60) mL/min BUN/Creatinine Ratio 15.7 (6-22) Glucose 149 H (70-99) mg/dL Calcium 10.1 (8.4-10.2) mg/dL Magnesium 2.0 (1.6-2.3) mg/dL Total Bilirubin 0.3 (0.2-1.3) mg/dL AST 24 (17-59) IU/L ALT 18 (<50) IU/L Alkaline Phosphatase 77 (38-126) U/L Total Creatine Kinase 40 L (55-170) U/L Troponin I < 0.012 < 0.012 (0.01-0.034) ng/mL NT-Pro-B Natriuret Pep < 20 (<125) pg/mL Total Protein 8.6 H (6.3-8.2) g/dL Albumin 4.7 (3.5-5.0) g/dL Globulin 3.9 (1.7-4.1) g/dL Albumin/Globulin Ratio 1.2 (1.0-2.8) Lipase 540 H (23-300) U/L Imaging Data Chest x-ray: Radiologist's Impression: No acute cardiopulmonary abnormality is seen ECG Data Interpretation: EKG shows a normal sinus rhythm with normal axis. Rate of 90 beats per minute. Normal MD intervals, nonspecific T-wave abnormality. Previous EKG showed normal sinus rhythm inferior infarct anterior infarct can not be ruled out MDM Narrative Medical decision making narrative: 69-year-old male who has been dealing with angina off and on for several months. In the past month, it is it has been getting worse and nightly. His cardiac workup here today was negative as well as his stress test in the past. He does have a Cardiology follow up this week at [facility] with his specialist physicians Dr. Fitzgerald. He may need a cardiac angiogram in the near future. Advised to follow up sooner if symptoms worsen. Discharge Plan Departure Patient Disposition: Home Clinical Impression: Atypical chest pain Instructions: DI for Atypical Chest Pain Activity Restrictions/Additional Instructions: Follow up with Cardiology as planned. May need a coronary angiogram. Come back sooner if chest pain worsens and having difficulty seeing Cardiology. Prescriptions: No Action colchicine 0.6 mg tablet 0.6 mg PO DAILY PRN (Reason: gout flare) Qty: 15 11RF Rx Instructions: start at the beginning of gout flare. Stop when got flare resolves. losartan 50 mg tablet 50 mg PO DAILY Qty: 100 3RF metformin 500 mg tablet extended release 24 hr 500 mg PO DAILY Qty: 180 3RF fluticasone propion-salmeterol [Wixela Inhub] 250-50 mcg/dose blister with device 1 inh inhalation BID Qty: 60 11RF Referrals: Alejandra Canales DO [Primary Care Provider, Family Practice] Stand Alone Forms: Patient Portal/API
--- NOTE | 2025-01-31 22:35 | PC.NURSE ---
Pt states has had 1 episode of chest pain since being here lasting approx 1 minute but less intense then previously.
[2025-01-31 23:10] LABS: Troponin I < 0.012 ng/mL (0.01-0.034)
--- NOTE | 2025-01-31 23:40 | PC.NURSE ---
Pt ambulatory to restroom without difficulty or assistance
== END 2025-02-01 00:12 | disposition home or self-care (01) ==
PROVIDERS: Emergency Provider Family Medicine; PCP Family Medicine
DX: R07.89 Other chest pain (principal); I10 Essential (primary) hypertension; E11.9 Type 2 diabetes mellitus without complications
CPT/HCPCS: 36415; 71045; 80053; 82550; 83690; 83735; 83880; 84484; 85025; 85610; 85730; 93005; 93010; 99284

== ENCOUNTER → 2025-02-11 08:39 | Outpatient (CLI) | payer MEDICARE, OTHER, SELFPAY ==
[2023-05-07 09:46] VITALS: BMI 33.4
[2025-02-11 09:35] LABS: Blood Urea Nitrogen 16 mg/dL (9-20); Calcium 10.0 mg/dL (8.4-10.2); Carbon Dioxide 26 mmol/L (22-32); Chloride 104 mmol/L (98-107); Estimated Glomerular Filt Rate > 60 mL/min (>60); Glucose 109 mg/dL (70-99); HEMOLYSIS < 15 (0-50); Potassium 4.1 mmol/L (3.4-5.1); Sodium 140 mmol/L (137-145)
[2025-02-11 09:36] LABS: Lipase 183 U/L (23-300)
== END ==
PROVIDERS: PCP Family Medicine; Referring Provider Family Medicine; Visit Provider Internal Medicine
DX: E78.5 Hyperlipidemia, unspecified (principal); K85.90 Acute pancreatitis without necrosis or infection, unspecified
CPT/HCPCS: 36415; 80048; 83690; 83695

== ENCOUNTER → 2025-02-15 07:05 | Outpatient (CLI) | payer MEDICARE, OTHER, SELFPAY ==
[2023-05-07 09:46] VITALS: BMI 33.4
== END ==
PROVIDERS: PCP Family Medicine; Referring Provider Family Medicine; Visit Provider Internal Medicine
DX: E78.5 Hyperlipidemia, unspecified (principal)
CPT/HCPCS: 36415; 83695